=== PATIENT | male | born 1945 | race Caucasian/White ===

== ENCOUNTER 2016-06-18 10:27 | Outpatient (CLI) | payer MEDICARE, MEDICAID | END 2016-06-18 10:28 | disposition home or self-care (01) | DX: E87.1 Hypo-osmolality and hyponatremia (principal); E78.5 Hyperlipidemia, unspecified; Z79.899 Other long term (current) drug therapy; Z12.5 Encounter for screening for malignant neoplasm of prostate; D64.9 Anemia, unspecified | CPT/HCPCS: 36415; 80053; 80061; 80162; 85025; G0103 ==

== ENCOUNTER 2016-11-30 14:34 | Outpatient (CLI) | payer MEDICARE, OTHER ==
[2016-11-30 19:34] LABS: BASOPHILS # (AUTO) 0.1 10^3/uL (0.0-0.1); BASOPHILS % (AUTO) 1.3 %; EOSINOPHILS % (AUTO) 0.7 %; HCT - HEMATOCRIT 42.4 % (42.0-52.0); HGB - HEMOGLOBIN 14.4 g/dL (14.0-18.0); LYMPHOCYTES # (AUTO) 2.1 10^3/uL (1.5-3.5); LYMPHOCYTES % (AUTO) 32.2 %; MEAN CORPUSCULAR HEMOGLOBIN 32.3 pg (27.0-31.0); MEAN CORPUSCULAR HGB CONC 33.9 g/dL (32.0-36.0); MEAN CORPUSCULAR VOLUME 95.1 fL (80.0-94.0); MONOCYTES # (AUTO) 0.8 10^3/uL (0.0-1.0); MONOCYTES % (AUTO) 11.8 %; NEUTROPHILS # (AUTO) 3.5 10^3/uL (1.5-6.6); NUCLEATED RED BLOOD CELLS AUTO 0.1 /100WBC; RED BLOOD COUNT 4.46 10^6/uL (4.70-6.10); RED CELL DISTRIBUTION WIDTH 13.8 % (12.0-15.0); UNCORRECTED WHITE BLOOD COUNT 6.5 x10^3/uL; WHITE BLOOD COUNT 6.5 x10^3/uL (4.8-10.8)
[2016-11-30 20:54] LABS: BILIRUBIN,TOTAL 0.9 mg/dL (0.2-1.0); BUN - BLOOD UREA NITROGEN 11 mg/dL (6-20); CALCIUM 9.1 mg/dL (8.5-10.3); CARBON DIOXIDE - CO2 23 mmol/L (21-32); CHLORIDE 100 mmol/L (101-111); CHOL/HDL RATIO 3.1 (<5.0); CHOLESTEROL 205 mg/dL; CREATININE 0.8 mg/dL (0.6-1.2); GFR - MDRD 96 (>89); GLUCOSE 99 mg/dL (70-100); HDL CHOLESTEROL 67 mg/dL; LDL/HDL RATIO 1.8 (<3.6); POTASSIUM 4.2 mmol/L (3.5-5.0); SODIUM 133 mmol/L (135-145); TOTAL PROTEIN 6.6 g/dL (6.7-8.2); TRIGLYCERIDES 87 mg/dL; VLDL CHOLESTEROL 17 mg/dL
== END 2016-11-30 14:35 | disposition home or self-care (01) ==
LOC: LAB.WCP 14:34
PROVIDERS: ATTEND Family Medicine
DX: E78.5 Hyperlipidemia, unspecified (principal)
CPT/HCPCS: 36415; 80053; 80061; 85025

== ENCOUNTER 2016-12-21 13:22 | Outpatient (CLI) | payer MEDICARE, OTHER ==
--- NOTE | 2016-12-21 18:18 | Ultrasound Report ---
LIMITED PELVIC ULTRASOUND: 12/21/2016 CLINICAL HISTORY: Left groin mass. TECHNIQUE: Real-time scanning was performed with players club representative static images obtained. FINDINGS: The patient has a small inguinal hernia. Defect in the anterior aspect of the left abdomi nal/pelvic wall in the area of the inguinal hernia measures 1.0 x 2.2 cm. The mesenteric fat extendi ng through the defect in the abdominal/pelvic wall measures 1.4 x 2.0 cm. The mesenteric fat extendi ng through the gap in the abdominal/pelvic wall measures 1.0 x 1.4 x 2.0 cm. Occasionally, bowel is seen extending through the defect in the anterior abdominal and pelvic wall but it is not incarcerate d. It is easily reducible. IMPRESSION: LEFT INGUINAL HERNIA IS NOTED. DEFECT IN THE ABDOMINAL/PELVIC WALL AT THE SITE OF THE H ERNIA MEASURES 2.0 X 1.4 CM. MESENTERIC FAT IS NOTED EXTENDING THROUGH THE DEFECT. OCCASIONALLY, NO N-INCARCERATED BOWEL IS NOTED EXTENDING THROUGH THE DEFECT. JOB #: [id number] EXT JOB #:
== END 2016-12-21 13:23 | disposition home or self-care (01) ==
LOC: DI 13:22
PROVIDERS: ATTEND Family Medicine
DX: K40.90 Unilateral inguinal hernia, without obstruction or gangrene, not specified as recurrent (principal)
CPT/HCPCS: 76857

== ENCOUNTER 2017-01-26 09:17 | Outpatient (CLI) | payer MEDICARE, OTHER ==
[2017-01-26 10:05] LABS: CALCIUM 9.3 mg/dL (8.5-10.3); CREATININE 1.2 mg/dL (0.6-1.2); POTASSIUM 4.4 mmol/L (3.5-5.0)
== END 2017-01-26 09:18 | disposition home or self-care (01) ==
LOC: LAB 09:17
PROVIDERS: ATTEND Registered Nurse
DX: Z79.899 Other long term (current) drug therapy (principal)
CPT/HCPCS: 36415; 80048; 93005

== ENCOUNTER 2017-02-01 07:35 | Day surgery (SDC) | payer MEDICARE, OTHER ==
[~2017-02-01 07:35] MED LIST: ceFAZolin 2 GM/50 ML 50 ML IV ONE
[2017-02-01] MEDS ORDERED: LACTATED RINGERS 1,000 ML IV ONE ×3 (07:55→09:32)
[2017-02-01] MEDS ORDERED: BUPIVACAINE 0.5% PF 30 ML VIAL INFIL ONE (09:13)
[2017-02-01] MEDS ORDERED: DEXAMETHASONE 4 MG/ML VIAL IVP ONE (10:10)
[2017-02-01] MEDS ORDERED: PROPOFOL 200 MG/20 ML VIAL IVP ONE (10:10)
[2017-02-01] MEDS ORDERED: ONDANSETRON 4 MG/2 ML VIAL IVP ONE (10:10)
[2017-02-01] MEDS ORDERED: MIDAZOLAM 2 MG/2 ML VIAL IVP ONE (10:10)
[2017-02-01] MEDS ORDERED: SUCCINYLCHOLINE 200 MG/10 ML VIAL IVP ONE (10:10)
[2017-02-01] MEDS ORDERED: NEOSTIGMINE 1 MG/1 ML 10 ML MDV IVP ONE (10:10)
[2017-02-01] MEDS ORDERED: ACETAMINOPHEN 1,000 MG/100 ML VIAL IV ONE (10:10)
[2017-02-01] MEDS ORDERED: ROCURONIUM 50 MG/5 ML VIAL IVP ONE (10:10)
[2017-02-01] MEDS ORDERED: GLYCOPYRROLATE 1 MG/5 ML VIAL IVP ONE (10:10)
[2017-02-01] MEDS ORDERED: LIDOCAINE-MPF 2% 5 ML VIAL IM ONE (10:10)
--- NOTE | 2017-02-01 11:02 | OPERATIVE REPORT ---
DATE OF SURGERY: 02/01/2017 00:00:00 SURGEON: Veena Chen MD. PROCEDURE: Laparoscopic left inguinal hernia repair. PREOPERATIVE DIAGNOSIS: Left inguinal hernia. POSTOPERATIVE DIAGNOSIS: Left inguinal hernia. INDICATION FOR PROCEDURE: This is a 71-year-old male who presents with a symptomatic left inguinal hernia, which is reducible. FINDINGS: After obtaining informed consent from the patient, he was brought into the operating room and positioned on the operating table in the supine position, taking note of pressure points. He was intubated by Anesthesia. He was administered 2 grams of Ancef. He was prepped and draped in the usual sterile fashion and a time-out was taken according to protocol. An infraumbilical 1 cm incision was created and deepened down to the anterior rectus sheath. This was fully exposed and divided using a #15 blade and extended laterally using Metzenbaum, approximately 1 cm. The underlying rectus muscle was exposed. This was swept laterally with the tonsil clamp and the surgeon's finger was inserted into the retrorectus space. Blunt dissection was performed. The dissection balloon was then inserted into the retrorectal space and the balloon inflated under direct visualization. This was then withdrawn and exchanged for the operative port. Camera was inserted and the space insufflated. Two 5 mm ports were inserted in the midline. Filmy adhesions overlying the pubic bone were swept free. I then worked my way medially to laterally, sweeping down the peritoneum from the lateral abdominal wall, working my way towards the cord structures. The epigastric vessels were identified, an indirect hernia was identified, which was partially reduced from the previous balloon dissection. Using blunt dissection, this was then fully reduced completely the sac from the cord structures. The direct space was inspected for any hernia formation in this location and none was noted. I then turned my attention to the patient's right groin. I began sweeping the peritoneum down from the right lateral abdominal wall and inspected the cord structures at this location. No hernia defect was identified on the right. A large Bard mesh was then selected and was inserted through the umbilical port. This was positioned into place in the patient's left groin, ensuring that it was overlapping the midline medially and covering the direct, indirect and femoral spaces. It was tacked into place medially above the pubic bone and to the lateral abdominal wall, ensuring it was palpable with the contralateral surgeon's hand. The mesh was then held into place while the air was evacuated, ensuring that it did not fold upon itself upon evacuation of the insufflation. All ports were removed. The anterior rectus sheath was closed with a running 0 Vicryl suture and 30 mL of local anesthetic was utilized. The skin incisions were closed with 4-0 Monocryl. Dermabond was applied. The patient was extubated and taken to the recovery room in stable condition. ESTIMATED BLOOD LOSS: Less than 5 mL. COMPLICATIONS: None. SPECIMENS: None. JOB #: [id number] EXT JOB #:[id number] [email or web address]
[2017-02-01 11:40] VITALS: BP 141/68
== END 2017-02-01 07:36 | disposition home or self-care (01) ==
LOC: SDS 07:35
PROVIDERS: ATTEND Surgery
PROC: 0YQ64ZZ Repair Left Inguinal Region, Percutaneous Endoscopic Approach (ICD-10-PCS; principal; 2017-02-01 08:45)
DX: K40.90 Unilateral inguinal hernia, without obstruction or gangrene, not specified as recurrent (principal); I10 Essential (primary) hypertension; Z79.82 Long term (current) use of aspirin
CPT/HCPCS: 49650; C1781; J0131; J0690; J7120

== ENCOUNTER 2017-08-04 08:00 | Outpatient (CLI) | payer MEDICARE, OTHER ==
[2017-08-04 18:55] LABS: BASOPHILS # (AUTO) 0.1 10^3/uL (0.0-0.1); BASOPHILS % (AUTO) 1.1 %; EOSINOPHILS # (AUTO) 0.1 10^3/uL (0.0-0.7); EOSINOPHILS % (AUTO) 0.9 %; HGB - HEMOGLOBIN 15.4 g/dL (14.0-18.0); LYMPHOCYTES # (AUTO) 1.6 10^3/uL (1.5-3.5); MEAN CORPUSCULAR HEMOGLOBIN 31.2 pg (27.0-31.0); MEAN CORPUSCULAR HGB CONC 33.1 g/dL (32.0-36.0); MEAN CORPUSCULAR VOLUME 94.2 fL (80.0-94.0); MEAN PLATELET VOLUME 9.7 fL (7.4-11.4); MONOCYTES # (AUTO) 0.9 10^3/uL (0.0-1.0); MONOCYTES % (AUTO) 10.7 %; NEUTROPHILS # (AUTO) 5.4 10^3/uL (1.5-6.6); NEUTROPHILS % (AUTO) 67.3 %; PLT - PLATELET COUNT 228 10^3/uL (130-450); RED BLOOD COUNT 4.92 10^6/uL (4.70-6.10); RED CELL DISTRIBUTION WIDTH 14.5 % (12.0-15.0); WHITE BLOOD COUNT 8.1 x10^3/uL (4.8-10.8)
[2017-08-04 19:12] LABS: PSA SCREEN (Z12.5) 1.17 ng/mL (0.000-2.000)
[2017-08-04 19:13] LABS: ALBUMIN 4.6 g/dL (3.2-5.5); ALBUMIN/GLOBULIN RATIO 1.7 (1.0-2.2); ALKALINE PHOSPHATASE 46 IU/L (42-121); ALT ALANINE AMINOTRANSFERASE 20 IU/L (10-60); AST ASPARTATE AMINOTRANSFERASE 28 IU/L (10-42); BILIRUBIN,TOTAL 0.9 mg/dL (0.2-1.0); BUN - BLOOD UREA NITROGEN 16 mg/dL (6-20); CALCIUM 9.4 mg/dL (8.5-10.3); CARBON DIOXIDE - CO2 25 mmol/L (21-32); CHLORIDE 103 mmol/L (101-111); CHOL/HDL RATIO 2.5 (<5.0); CHOLESTEROL 191 mg/dL; GFR - MDRD 74 (>89); GLUCOSE 94 mg/dL (70-100); HDL CHOLESTEROL 76 mg/dL; LDL CHOLESTEROL,CALCULATED 101 mg/dL; LDL/HDL RATIO 1.3 (<3.6); SODIUM 137 mmol/L (135-145); TOTAL PROTEIN 7.3 g/dL (6.7-8.2); VLDL CHOLESTEROL 14 mg/dL
== END 2017-08-04 08:01 ==
LOC: LAB.WCP 08:00
PROVIDERS: ATTEND Family Medicine
DX: E78.5 Hyperlipidemia, unspecified (principal); Z12.5 Encounter for screening for malignant neoplasm of prostate; E29.1 Testicular hypofunction; D64.9 Anemia, unspecified; Z79.899 Other long term (current) drug therapy; R53.83 Other fatigue
CPT/HCPCS: 36415; 80053; 80061; 80162; 84403; 84443; 85025; G0103; 83721; 84153

== ENCOUNTER 2017-08-17 10:59 | Outpatient (CLI) | payer MEDICARE, OTHER ==
--- NOTE | 2017-08-17 13:08 | CT Report ---
NONCONTRAST CHEST CT: 08/17/2017. COMPARISON: Chest CT 01/14/2014. INDICATION: Screening. TECHNIQUE: Noncontrast axial imaging of the chest with coronal and sagittal reformats. FINDINGS: The lungs appear clear without pneumothorax or pleural effusion. There are atherosclerotic calcifications of the coronary arteries. No mediastinal or hilar adenopathy is seen. No pericardial effusion. There is a calcified granuloma of the liver. The limited upper abdomen appears otherwise unremarkable. No bone lesions. IMPRESSION: NO PULMONARY NODULES OR MASSES. CT DOSE REDUCTION STATEMENT In accordance with CT protocol optimization, one or more of the following dose reduction techniques were utilized for this exam: automated exposure control, adjustment of mA and/or KV based on patient size, or use of iterative reconstructive technique. TD: 08/17/2017 13:07 MTDD
== END 2017-08-17 11:00 | disposition home or self-care (01) ==
LOC: DI 10:59
PROVIDERS: ATTEND Family Medicine
DX: Z12.2 Encounter for screening for malignant neoplasm of respiratory organs (principal); Z87.891 Personal history of nicotine dependence

== ENCOUNTER 2018-01-12 18:53 | Outpatient (CLI) | payer MEDICARE, OTHER ==
--- NOTE | 2018-01-13 08:28 | Ultrasound Report ---
Procedure Date: 01/12/2018 Accession Number: [id number] / [id number] Procedure: US - Ext Limited Non Vascular CPT Code: FULL RESULT: EXAM: Ext Limited Non Vascular DATE: 01/12/2018 7:12 PM CLINICAL HISTORY: NEOPLASM OF LEG COMPARISON: None. TECHNIQUE: Grayscale and limited color Doppler ultrasound images of the left lateral calf focus in the area of interest were obtained. FINDINGS: Less than 1 cm deep to the skin is a 2.7 cm long and 0.5 cm tall anechoic fluid collection with increased through transmission no solid component and no blood flow on color Doppler. In the same subcutaneous tissues there is edema tracking above and below this collection which resides above the muscular fascial compartment. IMPRESSION: Cyst or ruptured cyst without evidence of solid mass/invasion or suggestion of abscess formation. A resolving hematoma in its late stages can also have this appearance. Superinfection is not entirely excluded. RADIA
== END 2018-01-12 18:54 | disposition home or self-care (01) ==
LOC: DI 18:53
PROVIDERS: ATTEND Internal Medicine
DX: D49.89 Neoplasm of unspecified behavior of other specified sites (principal)
CPT/HCPCS: 76882

== ENCOUNTER 2018-05-13 11:13 | Outpatient (CLI) | payer MEDICARE, OTHER ==
[2018-05-13 19:00] LABS: BASOPHILS # (AUTO) 0.1 10^3/uL (0.0-0.1); BASOPHILS % (AUTO) 1.7 %; EOSINOPHILS # (AUTO) 0.1 10^3/uL (0.0-0.7); EOSINOPHILS % (AUTO) 1.7 %; HGB - HEMOGLOBIN 14.4 g/dL (14.0-18.0); LYMPHOCYTES # (AUTO) 1.6 10^3/uL (1.5-3.5); LYMPHOCYTES % (AUTO) 23.2 %; MEAN CORPUSCULAR HEMOGLOBIN 32.1 pg (27.0-31.0); MEAN CORPUSCULAR HGB CONC 32.7 g/dL (32.0-36.0); MEAN CORPUSCULAR VOLUME 98.2 fL (80.0-94.0); MEAN PLATELET VOLUME 9.8 fL (7.4-11.4); MONOCYTES % (AUTO) 14.9 %; NEUTROPHILS # (AUTO) 4.1 10^3/uL (1.5-6.6); NEUTROPHILS % (AUTO) 58.5 %; PLT - PLATELET COUNT 206 10^3/uL (130-450); RED BLOOD COUNT 4.48 10^6/uL (4.70-6.10); RED CELL DISTRIBUTION WIDTH 14.1 % (12.0-15.0); WHITE BLOOD COUNT 6.9 x10^3/uL (4.8-10.8)
[2018-05-13 19:15] LABS: ALBUMIN 3.9 g/dL (3.2-5.5); ALBUMIN/GLOBULIN RATIO 1.6 (1.0-2.2); ALKALINE PHOSPHATASE 51 IU/L (42-121); ALT ALANINE AMINOTRANSFERASE 15 IU/L (10-60); AST ASPARTATE AMINOTRANSFERASE 25 IU/L (10-42); BILIRUBIN,TOTAL 0.8 mg/dL (0.2-1.0); BUN - BLOOD UREA NITROGEN 20 mg/dL (6-20); CALCIUM 8.9 mg/dL (8.5-10.3); CARBON DIOXIDE - CO2 24 mmol/L (21-32); CHLORIDE 105 mmol/L (101-111); CHOL/HDL RATIO 2.4 (<5.0); CHOLESTEROL 174 mg/dL; DIGOXIN 0.8 ng/mL; GFR - MDRD 74 (>89); GLUCOSE 93 mg/dL (70-100); HDL CHOLESTEROL 74 mg/dL; LDL CHOLESTEROL,CALCULATED 89 mg/dL; LDL/HDL RATIO 1.2 (<3.6); SODIUM 139 mmol/L (135-145); TOTAL PROTEIN 6.4 g/dL (6.7-8.2); VLDL CHOLESTEROL 11 mg/dL
== END 2018-05-13 23:59 | disposition home or self-care (01) ==
LOC: LAB.WCP 11:13
PROVIDERS: ATTEND Family Medicine
DX: I10 Essential (primary) hypertension (principal); Z79.899 Other long term (current) drug therapy; E78.5 Hyperlipidemia, unspecified
CPT/HCPCS: 36415; 80053; 80061; 80162; 83721; 85025

== ENCOUNTER 2018-06-06 08:00 | Outpatient (CLI) | payer MEDICARE, OTHER ==
[2018-06-06 19:14] LABS: DIGOXIN 0.7 ng/mL
== END 2018-06-06 23:59 | disposition home or self-care (01) ==
LOC: LAB.WCP 08:00
PROVIDERS: ATTEND Family Medicine
DX: Z79.899 Other long term (current) drug therapy (principal)
CPT/HCPCS: 36415; 80162

== ENCOUNTER 2018-07-26 08:00 | Outpatient (CLI) | payer MEDICARE, OTHER | END 2018-07-26 23:59 | LOC: LAB.WCP 08:00 | PROVIDERS: ATTEND Family Medicine | DX: R39.11 Hesitancy of micturition (principal) | CPT/HCPCS: 36415; 84153 ==

== ENCOUNTER 2018-07-30 14:19 | Observation (INO) | payer MEDICARE, OTHER ==
[2018-07-30] MEDS ORDERED: SODIUM CHLORIDE 0.9% 1,000 ML IV ONE ×2 (14:45)
[2018-07-30] MEDS ORDERED: PANTOPRAZOLE 40 MG VIAL IVP STA (15:13)
[2018-07-30 15:14] LABS: BASOPHILS # (AUTO) 0.1 10^3/uL (0.0-0.1); BASOPHILS % (AUTO) 0.9 %; EOSINOPHILS % (AUTO) 0.3 %; HGB - HEMOGLOBIN 10.8 g/dL (14.0-18.0); LYMPHOCYTES # (AUTO) 1.2 10^3/uL (1.5-3.5); LYMPHOCYTES % (AUTO) 10.8 %; MEAN CORPUSCULAR HEMOGLOBIN 33.6 pg (27.0-31.0); MEAN CORPUSCULAR HGB CONC 34.8 g/dL (32.0-36.0); MEAN CORPUSCULAR VOLUME 96.5 fL (80.0-94.0); MEAN PLATELET VOLUME 8.7 fL (7.4-11.4); MONOCYTES # (AUTO) 0.6 10^3/uL (0.0-1.0); MONOCYTES % (AUTO) 5.8 %; NEUTROPHILS # (AUTO) 9.2 10^3/uL (1.5-6.6); NEUTROPHILS % (AUTO) 82.2 %; PLT - PLATELET COUNT 165 10^3/uL (130-450); RED BLOOD COUNT 3.21 10^6/uL (4.70-6.10); RED CELL DISTRIBUTION WIDTH 13.5 % (12.0-15.0); WHITE BLOOD COUNT 11.2 x10^3/uL (4.8-10.8)
--- NOTE | 2018-07-30 15:15 | ED Physician Documentation ---
PD HPI GI BLEED - Stated complaint Stated Complaint: N/D DIZZY/WEAKNESS - Chief complaint Chief Complaint: General - History obtained from History obtained from: Patient, Family - History of Present Illness Timing - onset: Today Timing - duration: Days (1) Timing - details: Abrupt onset Pain level max: 2 Pain level now: 2 Associated symptoms: Black/tarry stool (x3 today). No: Vomiting, Coffee ground emesis, Hematemesis, BRBPR Contributing factors: Alcohol use (1 750ml bottle of wine per day), Aspirin use (325mg PO daily). No: Sick contact, Bad food, Recent antibiotics, NSAID use, Stress, Anticoagulated Improved by: Other (nothing) Worsened by: Other (nothing) Similar symptoms before: Diagnosis (bleeding duodenal ulcer in 2008 or 2010, admitted here for same.) Recently seen: Not recently seen Review of Systems Ten Systems: 10 systems reviewed and negative Constitutional: denies: Fever, Chills Respiratory: denies: Cough GI: denies: Nausea, Vomiting, Hematemesis : denies: Dysuria Skin: denies: Rash, Lesions Musculoskeletal: denies: Neck pain, Back pain Neurologic: denies: Headache PD PAST MEDICAL HISTORY - Past Medical History Past Medical History: Yes Cardiovascular: Atrial fibrillation Respiratory: COPD Neuro: None Endocrine/Autoimmune: None GI: GERD, GI bleed, Ulcers : None HEENT: None Psych: None Musculoskeletal: Osteoporosis Derm: None - Past Surgical History Past Surgical History: Yes General: Colonoscopy Ortho: Knee replacement - Present Medications Home Medications: Ambulatory Orders Medication Instructions Recorded Confirmed Aliskiren Hemifumarate [Tekturna] 300 mg PO DAILY 02/05/13 07/30/18 Carvedilol [Coreg] 25 mg PO BID 02/05/13 07/30/18 Trazodone HCl 50 mg PO DAILY PM 02/05/13 07/30/18 Albuterol Sulfate [Ventolin Hfa] 2 puffs IH Q4HR PRN 06/18/13 07/30/18 Budesonide/Formoterol Fumarate 2 puffs IH BID 06/18/13 07/30/18 [Symbicort 80-4.5 Mcg Inhaler] Digoxin 250 mcg PO DAILY 01/27/14 07/30/18 Amlodipine Besylate 10 mg PO DAILY 01/26/17 07/30/18 Aspirin 325 mg PO DAILY 01/26/17 07/30/18 Cholecalciferol (Vitamin D3) 1,000 unit PO DAILY 01/26/17 07/30/18 [Vitamin D3] Ipratropium/Albuterol [Combivent 1 puffs IH TID 01/26/17 07/30/18 Respimat] Melatonin 10 mg PO QPM PRN 01/26/17 07/30/18 Valerian Root Extract [Valerian] 450 mg PO DAILY 01/26/17 07/30/18 - Allergies Allergies/Adverse Reactions: Allergies Allergy/AdvReac Type Severity Reaction Status Date / Time hydromorphone HCl * Allergy Intermediate itch Verified 07/30/18 14:57 [From Dilaudid] lisinopril AdvReac Unknown Verified 07/30/18 14:57 - Social History Does the pt smoke?: No Smoking Status: Never smoker Does the pt drink ETOH?: Yes Does the pt have substance abuse?: No - Immunizations Immunizations are current?: Yes Immunizations: TDAP current <10years - POLST Patient has POLST: No PD ED PE NORMAL - Vitals Vital signs reviewed: Yes - General General: Alert and oriented X 3, No acute distress, Well developed/nourished - HEENT HEENT: PERRL, Moist mucous membranes - Neck Neck: Supple, no meningeal sign - Cardiac Cardiac: RRR, Strong equal pulses - Respiratory Respiratory: No respiratory distress, Clear bilaterally - Abdomen Abdomen: Soft, Non tender, Non distended - Rectal Rectal: Other (dark tarry stool, hemoccult +) - Back Back: No spinal TTP - Derm Derm: Warm and dry - Extremities Extremities: No edema - Neuro Neuro: Alert and oriented X 3 - Psych Psych: Normal mood, Normal affect Results - Vitals Vitals: Vital Signs - 24 hr 07/30/18 07/30/18 14:41 15:38 Temperature 36.4 C L Heart Rate 62 71 Respiratory 14 16 Rate Blood Pressure 105/61 118/67 O2 Saturation 100 100 Oxygen O2 Source [Without Activity] Room air O2 Source Room air - Labs Labs: Laboratory Tests 07/30/18 07/30/18 07/30/18 14:38 15:05 15:05 WBC 11.2 H RBC 3.21 L Hgb 10.8 L Hct 31.0 L MCV 96.5 H MCH 33.6 H MCHC 34.8 RDW 13.5 Plt Count 165 MPV 8.7 Neut # (Auto) 9.2 H Lymph # (Auto) 1.2 L Steele # (Auto) 0.6 Eos # (Auto) 0.0 Baso # (Auto) 0.1 Absolute Nucleated RBC 0.01 Nucleated RBC % 0.1 PT INR APTT Sodium 136 Potassium 4.8 Chloride 104 Carbon Dioxide 23 Anion Gap 9.0 BUN 57 H Creatinine 0.9 Estimated GFR (MDRD) 83 L Glucose 113 H POC Whole Bld Glucose 106 H Calcium 8.5 Total Bilirubin 0.7 AST 18 ALT 14 Alkaline Phosphatase 38 L Total Protein 5.5 L Albumin 3.2 Globulin 2.3 Albumin/Globulin Ratio 1.4 Lipase 27 Last Dose Date Last Dose Time Digoxin Ethyl Alcohol Blood Type Antibody Screen 07/30/18 07/30/18 07/30/18 15:05 15:05 15:05 WBC RBC Hgb Hct MCV MCH MCHC RDW Plt Count MPV Neut # (Auto) Lymph # (Auto) Steele # (Auto) Eos # (Auto) Baso # (Auto) Absolute Nucleated RBC Nucleated RBC % PT 13.5 H INR 1.2 APTT 18.8 L Sodium Potassium Chloride Carbon Dioxide Anion Gap BUN Creatinine Estimated GFR (MDRD) Glucose POC Whole Bld Glucose Calcium Total Bilirubin AST ALT Alkaline Phosphatase Total Protein Albumin Globulin Albumin/Globulin Ratio Lipase Last Dose Date UNKNOWN Last Dose Time UNKNOWN Digoxin 0.7 Ethyl Alcohol Blood Type O POSITIVE Antibody Screen NEGATIVE 07/30/18 15:05 WBC RBC Hgb Hct MCV MCH MCHC RDW Plt Count MPV Neut # (Auto) Lymph # (Auto) Steele # (Auto) Eos # (Auto) Baso # (Auto) Absolute Nucleated RBC Nucleated RBC % PT INR APTT Sodium Potassium Chloride Carbon Dioxide Anion Gap BUN Creatinine Estimated GFR (MDRD) Glucose POC Whole Bld Glucose Calcium Total Bilirubin AST ALT Alkaline Phosphatase Total Protein Albumin Globulin Albumin/Globulin Ratio Lipase Last Dose Date Last Dose Time Digoxin Ethyl Alcohol < 5.0 Blood Type Antibody Screen PD MEDICAL DECISION MAKING - ED course Complexity details: reviewed results, re-evaluated patient, considered differential, d/w patient, d/w family, d/w technical marketing consultant ED course: 72-year-old male with what appears to be a recurrent bleeding gastric versus duodenal ulcer. He is not on any PPI. He does drink at least a bottle of wine a day. Also takes a full dose aspirin daily. He required 8 units of blood last time this occurred. Given Protonix here. Discussed case with Dr. Saldana who will consult from surgery. Also discussed the case with Dr. Martino, hospitalist who accepts for observation. This document was made in part using voice recognition software. While efforts are made to proofread this document, sound alike and grammatical errors may occur. Departure - Departure Disposition: ED Place in Observation Clinical Impression: Upper GI bleed Condition: Stable Discharge Date/Time: 07/30/18 17:16
[2018-07-30 15:24] LABS: INR 1.2 (0.8-1.2); PT - PROTHROMBIN TIME 13.5 secs (9.9-12.6)
[2018-07-30 15:29] LABS: ALBUMIN 3.2 g/dL (3.2-5.5); ALBUMIN/GLOBULIN RATIO 1.4 (1.0-2.2); BILIRUBIN,TOTAL 0.7 mg/dL (0.2-1.0); CALCIUM 8.5 mg/dL (8.5-10.3); CREATININE 0.9 mg/dL (0.6-1.2); TOTAL PROTEIN 5.5 g/dL (6.7-8.2)
[2018-07-30 15:30] LABS: DIGOXIN 0.7 ng/mL
[2018-07-30 15:31] LABS: PARTIAL THROMBOPLASTIN TIME 18.8 secs (24.9-33.3)
[2018-07-30] MEDS ORDERED: ACETAMINOPHEN 325 MG TABLET PO PRN (16:19)
[2018-07-30] MEDS ORDERED: ONDANSETRON 4 MG/2 ML VIAL IVP PRN (16:19)
[2018-07-30] MEDS ORDERED: MORPHINE 2 MG/ML CARPUJECT IVP PRN (16:19)
[2018-07-30] MEDS ORDERED: ZOLPIDEM 5 MG TABLET PO PRN (16:19)
[2018-07-30] MEDS ORDERED: LORazepam 2 MG/ML VIAL IVP PRN (16:33)
[2018-07-30] MEDS ORDERED: ALBUTEROL NEB 2.5 MG/3 ML INH PRN (16:39)
--- NOTE | 2018-07-30 16:51 | HISTORY & PHYSICAL EXAMINATION ---
Chief Complaint - Chief Complaint Chief Complaint: black tarry stools History of Present Illness - History of Present Illness HPI Comment/Other: Mr. Duenas is 72-yrs-old male with a PMH significant for alcoholism with alcohol withdrawal syndrom and delirium tremens, hx of gastric ulcer, HTN, chronic Afib, Depression, COPD, who present ER for complain of feeling of fatigue and dizziness, and having an episode of black tarry stools today. Pt also reports nausea and vomiting. Pt report he has mild cramp pain at upper left quadrant at stomach area. Pt state he drink alcohol wine 750 cc every day. Pt report he take ASA 325 mg daily for his afib " my doctor let me take it for my Afib." pt denies hematemesis, chest pain, palpitation, fever, chill, shortness of break. Pt's HGB was 14.4 on 2017. Today pt's HGB is 10.8. pt also had significant elevated BUN at 58, normally pt has 20. Otherwise pt is hemodynamically stable. Surgeon was called at ER. Pt was on NPO either today or tomorrow for Endoscopy. History - Past Medical History Cardiovascular: reports: Atrial fibrillation Respiratory: reports: COPD Neuro: reports: None Endocrine/Autoimmune: reports: None GI: reports: GERD, GI bleed, Ulcers : reports: None HEENT: reports: None Psych: reports: None Musculoskeletal: reports: Osteoporosis Derm: reports: None MRSA Hx?: No - Past Surgical History General: reports: Colonoscopy Ortho: reports: Knee replacement - Family & Social History Social History Notes: pt has long history for alcoholic abuse, pt denies cigaret t smoking or drug problem. - Substance History Use Issues: Delirium Abuse: Recurrent use of substance despite neg consequences: Alcohol - POLST Patient has POLST: No Meds/Allgy - Home Medications Home Medications: Ambulatory Orders Medication Instructions Recorded Confirmed Aliskiren Hemifumarate [Tekturna] 300 mg PO DAILY 02/05/13 07/30/18 Carvedilol [Coreg] 25 mg PO BID 02/05/13 07/30/18 Trazodone HCl 50 mg PO DAILY PM 02/05/13 07/30/18 Albuterol Sulfate [Ventolin Hfa] 2 puffs IH Q4HR PRN 06/18/13 07/30/18 Budesonide/Formoterol Fumarate 2 puffs IH BID 06/18/13 07/30/18 [Symbicort 80-4.5 Mcg Inhaler] Digoxin 250 mcg PO DAILY 01/27/14 07/30/18 Amlodipine Besylate 10 mg PO DAILY 01/26/17 07/30/18 Aspirin 325 mg PO DAILY 01/26/17 07/30/18 Cholecalciferol (Vitamin D3) 1,000 unit PO DAILY 01/26/17 07/30/18 [Vitamin D3] Ipratropium/Albuterol [Combivent 1 puffs IH TID 01/26/17 07/30/18 Respimat] Melatonin 10 mg PO QPM PRN 01/26/17 07/30/18 Valerian Root Extract [Valerian] 450 mg PO DAILY 01/26/17 07/30/18 - Allergies Allergies/Adverse Reactions: Allergies Allergy/AdvReac Type Severity Reaction Status Date / Time hydromorphone HCl * Allergy Intermediate itch Verified 07/30/18 14:57 [From Dilaudid] lisinopril AdvReac Unknown Verified 07/30/18 14:57 Review of Systems - Constitutional Constitutional: reports: Fatigue. denies: Fever, Chills, Malaise, Weakness, Poor appetite, Diaphoresis, Night sweats, Weight gain, Weight loss - Eyes Eyes: denies: Pain, Irritation, Amaurosis, Blurred vision, Spots in vision, Field loss, Vision loss, Dipolpia - Ears, Nose & Throat Ears, Nose & Throat: denies: Ear pain, Hearing loss, Hearing aids, Tinnitus, Vertigo, Nasal pain, Nasal discharge, Nosebleeds, Nasal obstruction, Nasal congestion, Postnasal drainage, Dentures, Sore throat, Hoarseness, Mouth lesions, Bleeding gums, Dental decay - Cardiovascular Cariovascular: denies: Irregular heart rate, Palpitations, Chest pain, Edema, Lightheadedness, Syncope, Exertional dyspnea, Decr. exercise tolerance - Respiratory Respiratory: denies: Cough, Sputum production, Wheezing, Snoring, Hemoptysis, Orthopnea, SOB at rest, SOB with exertion - Gastrointestinal Gastrointestinal: reports: Abdominal pain, Black stools, Nausea, Vomiting. denies: Abdominal distention, Constipation, Diarrhea, Change in bowel habits, Rectal bleeding, Bloody stools, Bile emesis, Keenan blood emesis, Coffee grounds emesis, Reflux/heartburn - Genitourinary Genitourinary: denies: Dysuria, Frequency, Urgency, Hematuria, Incontinence, Flank pain, Nocturia, Urethral discharge - Musculoskeletal Musculoskeletal: denies: Muscle pain, Back pain, Muscle aches, Stiffness, Limited range of motion, Muscle weakness, Gout, Joint pain - Integumentary Integumentary: denies: Rash, Pruritis, Lesions, Dryness, Lumps, Acne, Pigment changes, Nail changes - Neurological Neurological: denies: General weakness, Focal weakness, Headache, Dizziness, Numbness, Memory problems, Pre-existing deficit, Abnormal gait, Seizures, Incoordination, Slurred speech - Psychiatric Psychiatric: denies: Depression, Anxiety, Suicidal, Delusions, Hallucinations, Homicidal - Endocrine Endocrine: denies: Polyuria, Polydypsia, Polyphagia, Intolerance to cold - Hematologic/Lymphatic Hematologic/Lymphatic: reports: Anemia. denies: Bruising, Petechiae, Blood clots, Lymphadenopathy, Recurrent infections Prior Level of Functionality: pt is living at home with his Exam - Vital Signs Reviewed Vital Signs: Yes Vital Signs: Vital Signs x48h Temp Pulse Resp BP Pulse Ox 07/30/18 15:38 71 16 118/67 100 07/30/18 14:41 36.4 C L 62 14 105/61 100 - Physical Exam General Appearance: positive: No acute distress, Alert. negative: Lethargic Eyes Bilateral: positive: Normal inspection, PERRL, No lid inflammation, Conjunctivae nml ENT: positive: ENT inspection nml, Pharynx nml, No signs of dehydration. negative: Purulent nasal drainage, Pharyngeal erythema, Oral lesions Neck: positive: Nml inspection, Thyroid nml, No JVD, Trachea midline. negative: Thyromegaly, Stiff neck, Carotid bruit, Swelling/bruising, Tracheal deviation Respiratory: positive: Chest non-tender, No respiratory distress, Breath sounds nml. negative: Wheezes, Rales, Rhonchi Cardiovascular: positive: Regular rate & rhythm, No murmur, No gallop. negative: Irregularly irregular, Extrasystoles, Tachycardia, Bradycardia, JVD present, Systolic murmur, Diastolic murmur Peripheral Pulses: positive: 2+ Abdomen: positive: Non-tender, No organomegaly, Nml bowel sounds, No distention. negative: Tenderness, Guarding, Rebound Back: positive: Nml inspection. negative: CVA tenderness (R), CVA tenderness (L) Skin: positive: Color nml, No rash, Warm, Dry. negative: Cyanosis, Diaphoresis, Pallor, Skin rash Extremities: positive: Non-tender, Full ROM, Nml appearance. negative: Calf tenderness, Joint swelling, Rudi's sign/cords Neurologic/Psychiatric: positive: Oriented x3, Motor nml, Sensation nml, Mood/affect nml. negative: Weakness, Sensory loss, Facial droop, Slurred/abnml speech, Depressed mood/affect Sepsis Event Note (H) - Evaluation Current Stage of Sepsis: Ruled out Conclusion/Plan - Problem List (1) Black tarry stools Conclusion/Plan: pt report black stool, with drop of HGB, and increase of BUN, with alcohol abuse and ASA use, hx of gastric ulcer, all indicate pt is going upper GI bleeding. consult with GI surgeon, plan to have EGD H&H to monitor pt Protonic IV bid and IVF hold pt's home meds ASA daily lab and vital monitor (2) Alcohol abuse Conclusion/Plan: long hx of alcohol abuse, and continue to drink 750 wine daily, hx of alcohol withdrawal and delirium CIWA protocol and check glucose level Banna bag Ativan PRN neuro check (3) Chronic a-fib Conclusion/Plan: pt is hemodynamic stable, HR is controlled at around 70. pt denies chest pain, palpitations continue home Digix and check Digix serum concentration continue Coreg tele monitor hold blood thinner for GI bleed, hold ASA. (4) HTN (hypertension) Conclusion/Plan: hemodynamic stable, continue home BP meds, vital monitor (5) History of COPD Conclusion/Plan: stable, 100% Sat on room air now. Albuterol and Duoneb PRN - Lab Results Fish Bones: 07/30/18 15:05 07/30/18 15:05 Core Measures - Anticipated LOS I expect patient to be DC'd or transferred within 96 hours.: Yes - DVT/VTE - Prophylaxis VTE/DVT Device ordered at admit?: Yes VTE/DVT Prophylaxis med ordered at admit?: No Not Ordered - Medical Reason: Contraindicated
[2018-07-30] MEDS ORDERED: PANTOPRAZOLE 40 MG VIAL IVP SCH (17:00)
[2018-07-30 17:04] LABS: BILIRUBIN,URINE NEGATIVE (NEGATIVE); GLUCOSE, URINE (UA) NEGATIVE (NEGATIVE); KETONES,URINE (UA) NEGATIVE (NEGATIVE); LEUKOCYTE ESTERASE, URINE NEGATIVE (NEGATIVE); NITRITE,URINE NEGATIVE (NEGATIVE); OCCULT BLOOD,URINE NEGATIVE (NEGATIVE); PH,URINE 5.5 PH (5.0-7.5); PROTEIN,URINE NEGATIVE (NEGATIVE); UROBILINOGEN,URINE 0.2 (NORMAL) E.U./dL (NORMAL)
[2018-07-30 17:13] LABS: CLARITY,URINE CLEAR (CLEAR)
[2018-07-30] MEDS: SODIUM CHLORIDE 0.9% 1,000 ML IV SCH (17:15)
--- NOTE | 2018-07-30 19:56 | CONSULTATION NOTE ---
Referring Provider Consult Date: 07/30/18 Chief Complaint - Chief Complaint Chief Complaint: black stool History of Present Illness - History of Present Illness HPI Comment/Other: 72 yo man presented to the ER stating he had melena and blood-tinged vomit this morning. He has not had any episodes since noon. He had a similar, more severe episode 8 years ago which required a large volume blood transfusion related to an ulcer. He is an alcoholic and takes a daily aspirin. Also complains of mild epigastric pain. History - Past Medical History Cardiovascular: reports: Hypertension, Atrial fibrillation, Murmur Respiratory: reports: COPD Neuro: reports: None Endocrine/Autoimmune: reports: None GI: reports: GERD, GI bleed, Ulcers : reports: Incontinence, Other HEENT: reports: None Psych: reports: None Musculoskeletal: reports: Osteoarthritis Derm: reports: None MRSA Hx?: No Other Past Medical History: urinary stream problems, urinary incontinence. Left knee arthritis - Past Surgical History General: reports: Colonoscopy Ortho: reports: Knee replacement - Family & Social History Social History Notes: pt has long history for alcoholic abuse, pt denies cigarett smoking or drug problem. - Substance History Use Issues: Delirium Abuse: Recurrent use of substance despite neg consequences: Alcohol - POLST Patient has POLST: No Meds/Allgy - Home Medications Home Medications: Ambulatory Orders Medication Instructions Recorded Confirmed Aliskiren Hemifumarate [Tekturna] 300 mg PO DAILY 02/05/13 07/30/18 Carvedilol [Coreg] 25 mg PO BID 02/05/13 07/30/18 Trazodone HCl 50 mg PO DAILY PM 02/05/13 07/30/18 Albuterol Sulfate [Ventolin Hfa] 2 puffs IH Q4HR PRN 06/18/13 07/30/18 Budesonide/Formoterol Fumarate 2 puffs IH BID 06/18/13 07/30/18 [Symbicort 80-4.5 Mcg Inhaler] Digoxin 250 mcg PO DAILY 01/27/14 07/30/18 Amlodipine Besylate 10 mg PO DAILY 01/26/17 07/30/18 Aspirin 325 mg PO DAILY 01/26/17 07/30/18 Cholecalciferol (Vitamin D3) 1,000 unit PO DAILY 01/26/17 07/30/18 [Vitamin D3] Ipratropium/Albuterol [Combivent 1 puffs IH TID 01/26/17 07/30/18 Respimat] Melatonin 10 mg PO QPM PRN 01/26/17 07/30/18 Valerian Root Extract [Valerian] 450 mg PO DAILY 01/26/17 07/30/18 - Allergies Allergies/Adverse Reactions: Allergies Allergy/AdvReac Type Severity Reaction Status Date / Time hydromorphone HCl * Allergy Intermediate itch Verified 07/30/18 14:57 [From Dilaudid] lisinopril AdvReac Unknown Verified 07/30/18 14:57 Review of Systems - Gastrointestinal Gastrointestinal: reports: Abdominal pain, Change in bowel habits, Black stools, Nausea, Vomiting, Coffee grounds emesis Exam - Vital Signs Vital Signs: Vital Signs x48h Temp Pulse Pulse Resp BP BP Pulse Ox 07/30/18 18:14 70 16 07/30/18 18:05 36.5 C 37 L 16 100 07/30/18 17:12 36.5 C 73 16 135/70 H 100 07/30/18 16:55 36.7 C 76 16 136/67 H 97 07/30/18 15:38 71 16 118/67 100 07/30/18 14:41 36.4 C L 62 14 105/61 100 - Physical Exam General Appearance: positive: No acute distress Eyes Bilateral: positive: Normal inspection ENT: positive: ENT inspection nml Neck: positive: Nml inspection Abdomen: positive: Non-tender Back: positive: Nml inspection Skin: positive: Color nml Extremities: positive: Non-tender Neurologic/Psychiatric: positive: Oriented x3 Conclusion/Plan - Diagnosis Diagnosis: Upper GI bleed - Plan Plan: Pt appears to have had an upper GI bleed, but he is now stable with no sign of further bleeding. Plan is to observe overnight and recheck an H/H in the morning and perform an EGD if there is any sign of further bleeding. - Lab Results Fish Bones: 07/30/18 15:05 07/30/18 15:05
[2018-07-30] MEDS: SODIUM CHLORIDE FLUSH 0.9% 10 ML SYRINGE IVP SCH (20:02)
[2018-07-30] MEDS: CARVEDILOL 12.5 MG TABLET PO SCH (20:40)
[2018-07-30] MEDS: traZODone 50 MG TABLET PO SCH (20:40)
[2018-07-30] MEDS ORDERED: BUDESONIDE IH SCH (21:00)
[2018-07-30] MEDS ORDERED: FORMOTEROL FUMARATE IH SCH (21:00)
[2018-07-30] MEDS ORDERED: [UNRECOGNIZED DRUG - OTHER] IH SCH (21:00)
[2018-07-30 22:59] LABS: HGB - HEMOGLOBIN 9.2 g/dL (14.0-18.0)
[2018-07-31] MEDS: SODIUM CHLORIDE 0.9% 1,000 ML IV SCH ×3 (00:17→13:34)
[2018-07-31] MEDS: SODIUM CHLORIDE FLUSH 0.9% 10 ML SYRINGE IVP SCH ×3 (00:18→17:06)
[2018-07-31 06:46] LABS: BASOPHILS # (AUTO) 0.1 10^3/uL (0.0-0.1); EOSINOPHILS % (AUTO) 0.8 %; HGB - HEMOGLOBIN 8.5 g/dL (14.0-18.0); LYMPHOCYTES # (AUTO) 1.6 10^3/uL (1.5-3.5); LYMPHOCYTES % (AUTO) 31.3 %; MEAN CORPUSCULAR HEMOGLOBIN 33.2 pg (27.0-31.0); MEAN CORPUSCULAR HGB CONC 33.4 g/dL (32.0-36.0); MEAN CORPUSCULAR VOLUME 99.2 fL (80.0-94.0); MEAN PLATELET VOLUME 8.8 fL (7.4-11.4); MONOCYTES # (AUTO) 0.6 10^3/uL (0.0-1.0); MONOCYTES % (AUTO) 11.9 %; NEUTROPHILS # (AUTO) 2.8 10^3/uL (1.5-6.6); PLT - PLATELET COUNT 138 10^3/uL (130-450); RED BLOOD COUNT 2.56 10^6/uL (4.70-6.10); RED CELL DISTRIBUTION WIDTH 13.7 % (12.0-15.0)
[2018-07-31 06:50] LABS: CALCIUM 7.9 mg/dL (8.5-10.3); CREATININE 0.8 mg/dL (0.6-1.2); MAGNESIUM 1.9 mg/dL (1.7-2.8)
[2018-07-31 06:55] LABS: DIGOXIN 0.9 ng/mL
[2018-07-31] MEDS: IPRATROPIUM/ALBUTEROL 3 ML NEB INH PRN (07:31)
[2018-07-31] MEDS: BUDESONIDE 0.5 MG/2 ML NEB INH SCH ×2 (07:31→19:13)
[2018-07-31] MEDS: FORMOTEROL FUMARATE NEB 20 MCG/2 ML INH SCH ×2 (07:31→19:13)
[2018-07-31] MEDS: CARVEDILOL 12.5 MG TABLET PO SCH ×2 (08:12→20:22)
[2018-07-31] MEDS: CHOLECALCIFEROL 1,000 UNIT TABLET PO SCH (08:12)
[2018-07-31] MEDS: amLODIPine 5 MG TABLET PO SCH (08:12)
[2018-07-31] MEDS: DIGOXIN 125 MCG TABLET PO SCH (08:12)
[2018-07-31] MEDS: POLYETHYLENE GLYCOL 3350 17 GM PACKET PO SCH (08:13)
[2018-07-31] MEDS: PANTOPRAZOLE 40 MG VIAL IVP SCH ×2 (08:13→16:36)
[2018-07-31] MEDS ORDERED: MULTIVITAMIN 10 ML, THIAMINE INJ 100 MG, FOLIC ACID INJ 1 MG in SODIUM CHLORIDE 0.9% 1,... IV SCH (09:00)
[2018-07-31] MEDS: ALISKIREN HEMIFUMARATE 300 MG PO SCH (10:12)
[2018-07-31] MEDS ORDERED: LIDO GARGLE 30 ML BOTTLE ONE (10:35)
--- NOTE | 2018-07-31 10:35 | ANESTHESIA ---
Pre-Anesthesia VS, & Labs - Diagnosis Diagnosis Upper GI bleed GI bleed - Procedure Upper endoscopy, EGD Vital Signs: Temp Pulse Resp BP Pulse Ox 36.6 C 84 16 122/61 98 07/31/18 08:05 07/31/18 08:05 07/31/18 08:05 07/31/18 08:05 07/31/18 08:05 Height 5 ft 8 in Weight (kg) 76 kg Body Mass Index 25.0 - NPO >8 hours - Lab Results Current Lab Results: Laboratory Tests 07/31/18 07:35: POC Whole Bld Glucose 93 07/31/18 06:22: Last Dose Date UNK, Last Dose Time UNK, Digoxin 0.9 07/31/18 06:22: Sodium 139, Potassium 3.8, Chloride 110, Carbon Dioxide 21, Anion Gap 8.0, BUN 30 H, Creatinine 0.8, Estimated GFR (MDRD) 96, Glucose 85, Calcium 7.9 L, Magnesium 1.9 07/31/18 06:22: WBC 5.0, RBC 2.56 L, Hgb 8.5 L, Hct 25.4 L, MCV 99.2 H, MCH 33.2 H, MCHC 33.4, RDW 13.7, Plt Count 138, MPV 8.8, Neut # (Auto) 2.8, Lymph # (Auto) 1.6, [place] # (Auto) 0.6, Eos # (Auto) 0.0, Baso # (Auto) 0.1, Absolute Nucleated RBC 0.01, Nucleated RBC % 0.2 07/31/18 06:00: POC Whole Bld Glucose 81 07/31/18 00:30: POC Whole Bld Glucose 82 07/30/18 22:54: Hgb 9.2 L, Hct 27.5 L 07/30/18 18:44: POC Whole Bld Glucose 92 07/30/18 15:05: Ethyl Alcohol < 5.0 07/30/18 15:05: Last Dose Date UNKNOWN, Last Dose Time UNKNOWN, Digoxin 0.7 07/30/18 15:05: PT 13.5 H, INR 1.2, APTT 18.8 L 07/30/18 15:05: Blood Type O POSITIVE, Antibody Screen NEGATIVE 07/30/18 15:05: Sodium 136, Potassium 4.8, Chloride 104, Carbon Dioxide 23, Anion Gap 9.0, BUN 57 H, Creatinine 0.9, Estimated GFR (MDRD) 83 L, Glucose 113 H, Calcium 8.5, Total Bilirubin 0.7, AST 18, ALT 14, Alkaline Phosphatase 38 L, Total Protein 5.5 L, Albumin 3.2, Globulin 2.3, Albumin/Globulin Ratio 1.4, Lipase 27 07/30/18 15:05: WBC 11.2 H, RBC 3.21 L, Hgb 10.8 L, Hct 31.0 L, MCV 96.5 H, MCH 33.6 H, MCHC 34.8, RDW 13.5, Plt Count 165, MPV 8.7, Neut # (Auto) 9.2 H, Lymph # (Auto) 1.2 L, [place] # (Auto) 0.6, Eos # (Auto) 0.0, Baso # (Auto) 0.1, Absolute Nucleated RBC 0.01, Nucleated RBC % 0.1 07/30/18 14:38: POC Whole Bld Glucose 106 H Fish Bones: 07/31/18 06:22 07/31/18 06:22 Home Medications and Allergies Active Medications Acetaminophen (Tylenol) 650 mg PO Q4HR PRN PRN Reason: Pain 1 to 4 Albuterol () 2.5 mg INH RTQ4H PRN PRN Reason: Wheezing Albuterol/Ipratropium (Duoneb) 3 ml INH Q4HR PRN PRN Reason: Wheezing Last Admin: 07/31/18 07:31 Dose: 3 ml Amlodipine Besylate (Norvasc) 10 mg PO DAILY [facility] Last Admin: 07/31/18 08:12 Dose: 10 mg Budesonide (Pulmicort) 0.5 mg INH RTBID [facility] Last Admin: 07/31/18 07:31 Dose: 0.5 mg Carvedilol (Coreg) 25 mg PO BID [facility] Last Admin: 07/31/18 08:12 Dose: 25 mg Cholecalciferol (Vitamin D3) 1,000 unit PO DAILY [facility] Last Admin: 07/31/18 08:12 Dose: 1,000 unit Digoxin (Lanoxin) 250 mcg PO DAILY [facility] Last Admin: 07/31/18 08:12 Dose: 250 mcg Formoterol Fumarate (Perforomist) 20 mcg INH RTBID [facility] Last Admin: 07/31/18 07:31 Dose: 20 mcg Sodium Chloride (Normal Saline 0.9%) 1,000 mls @ 100 mls/hr IV .Q10H [facility] Last Admin: 07/31/18 10:00 Dose: 100 mls/hr Multivitamins 10 ml/ Thiamine HCl 100 mg/ Folic Acid 1 mg/Sodium Chloride 1,011.2 mls @ 100 mls/hr IV DAILY [facility] Lorazepam (Ativan Inj (Vial)) 1 mg IVP Q30M PRN; Protocol PRN Reason: CIWA >8 Ondansetron HCl (Zofran Inj) 4 mg IVP Q6HR PRN PRN Reason: Nausea / Vomiting Pantoprazole Sodium (Protonix) 40 mg IVP BIDAC [facility] Last Admin: 07/31/18 08:13 Dose: 40 mg Aliskiren Hemifumarate [ Tekturna] 300 Mg 1 each PO DAILY [facility] Last Admin: 07/31/18 10:12 Dose: Not Given Melatonin 10 Mg 1 each PO QPM PRN PRN Reason: Restlessness Polyethylene Glycol (Miralax) 17 gm PO DAILY [facility] Last Admin: 07/31/18 08:13 Dose: Not Given Sodium Chloride (Normal Saline Flush 0.9%) 10 ml IVP PRN PRN PRN Reason: NEEDED PER PROVIDER ORDERS Sodium Chloride (Normal Saline Flush 0.9%) 10 ml IVP 0100,0900,1700 [facility] Last Admin: 07/31/18 08:13 Dose: 10 ml Trazodone HCl (Desyrel) 50 mg PO QPM [facility] Last Admin: 07/30/18 20:40 Dose: 50 mg Zolpidem Tartrate (Ambien) 5 mg PO QPM PRN PRN Reason: Insomnia Aliskiren Hemifumarate [Tekturna] 300 mg PO DAILY 02/05/13 Carvedilol [Coreg] 25 mg PO BID 02/05/13 Trazodone HCl 50 mg PO DAILY PM 02/05/13 Albuterol Sulfate [Ventolin Hfa] 2 puffs IH Q4HR PRN 06/18/13 Budesonide/Formoterol Fumarate [Symbicort 80-4.5 Mcg Inhaler] 2 puffs IH BID 06/18/13 Digoxin 250 mcg PO DAILY 01/27/14 Amlodipine Besylate 10 mg PO DAILY 01/26/17 Aspirin 325 mg PO DAILY 01/26/17 Cholecalciferol (Vitamin D3) [Vitamin D3] 1,000 unit PO DAILY 01/26/17 Ipratropium/Albuterol [Combivent Respimat] 1 puffs IH TID 01/26/17 Melatonin 10 mg PO QPM PRN 01/26/17 Valerian Root Extract [Valerian] 450 mg PO DAILY 01/26/17 Allergies/Adverse Reactions: Allergies Allergy/AdvReac Type Severity Reaction Status Date / Time hydromorphone HCl * Allergy Intermediate itch Verified 07/30/18 14:57 [From Dilaudid] lisinopril AdvReac Unknown Verified 07/30/18 14:57 Anes History & Medical History - Anesthetic History Anesthesia Complications: reports: No previous complications Family history of Anesthesia Complications: Denies Family history of Malignant Hyperthermia: Denies - Medical History Cardiovascular: reports: Hypertension, Atrial fibrillation, Murmur Pulmonary: reports: COPD Gastrointestinal: reports: GERD, GI bleed, Ulcers Urinary: reports: None, Incontinence, Other Neuro: reports: None Musculoskeletal: reports: Osteoarthritis Endocrine/Autoimmune: reports: None Blood Disorders: reports: Anemia Skin: reports: None Smoking Status: Former smoker Psychosocial: reports: No issues indicated, Substance abuse Other Past Medical History: urinary stream problems, urinary incontinence. Left knee arthritis - Surgical History General: Colonoscopy Orthopedic: Knee replacement Exam General: Alert, Oriented x3 Dental: WNL Mouth Opening: Greater than 4 Fingerbreadths Neck Mobility: Reduced Mallampati classification: II Thyromental Distance: greater than 6 cm Respiratory: Lungs clear Cardiovascular: Other (Irregular) Cognitive Status: Within normal limits Plan Anesthesia Type: Total IV Consent for Procedure(s) Verified and Reviewed: Yes Code Status: Attempt Resuscitation ASA classification: 3-Severe systemic disease Is this case an emergency?: Yes
[2018-07-31] MEDS ORDERED: LIDO GARGLE 30 ML BOTTLE PO ONE (11:14)
[2018-07-31] MEDS ORDERED: LACTATED RINGERS 1,000 ML IV ONE (11:15)
[2018-07-31] MEDS ORDERED: EPINEPHrine 1 MG/ML AMP ONE (11:23)
[2018-07-31] MEDS ORDERED: SODIUM CHLORIDE 0.9% 10 ML ONE (11:24)
[2018-07-31] MEDS ORDERED: MIDAZOLAM 2 MG/2 ML VIAL IVP ONE (11:30)
[2018-07-31] MEDS ORDERED: LIDOCAINE-MPF 2% 5 ML VIAL IM ONE (11:30)
[2018-07-31] MEDS ORDERED: PROPOFOL 200 MG/20 ML VIAL IVP ONE (11:30)
[2018-07-31] MEDS ORDERED: ePHEDrine 50 MG/ML VIAL IVP ONE (11:30)
--- NOTE | 2018-07-31 11:34 | IMMEDIATE POSTOPERATIVE NOTE ---
Immediate Postoperative Note - Procedure Note Procedure Date: 07/31/18 Pre-Op Diagnosis: upper GI bleed Procedure: EGD Post-Op Diagnosis: prepyloric gastric ulcer Primary Surgeon: scott Anesthesia Type: MAC Findings: non-bleeding prepyloric ulcer. Some old blood in stomach. Complications: No complications Estimated Blood Loss (in cc): 0 Specimens and Cultures: ulcer biopsy Plan of Care: These ulcers are usually from acid hypersecretion. Recommend discharge on PPI, alcohol cessation, empirically treating for HPylori, and stopping ASA and other NSAIDs.
[2018-07-31 14:02] LABS: HGB - HEMOGLOBIN 8.4 g/dL (14.0-18.0)
--- NOTE | 2018-07-31 14:32 | OPERATIVE REPORT ---
DATE OF SERVICE: 07/31/2018 Physician: Rafy Saldana MD PREOPERATIVE DIAGNOSIS: Upper gastrointestinal bleed. POSTOPERATIVE DIAGNOSIS: Nonbleeding prepyloric gastric ulcer. PROCEDURE: Esophagogastroduodenoscopy. INDICATIONS FOR PROCEDURE: The patient is a 72-year-old man who was admitted for 1 day of dizziness, melena, and anemia. Initially when he was admitted he stated that his bleeding episodes had stopped. However, his H and H continued to trend down overnight, so plans were made to take him for an EGD this morning. PROCEDURE IN DETAIL: The risks and benefits were explained to the patient, and he agreed to the procedure. He was taken to the operating room and given sedation. A timeout was performed and everyone in the room agreed to the procedure. We begun by inserting a well-lubricated endoscope through the oral cavity, down through the esophagus to the stomach. A small amount of blood was seen in the stomach and a prepyloric gastric ulcer was seen. The scope was then passed to the second portion of the duodenum. There were no abnormalities in the duodenum. The scope was then withdrawn back into the stomach. The rest of the stomach was inspected and no abnormalities were seen. The ulcer was lavaged and found to not be bleeding, despite the old blood in the stomach. A cold forceps biopsy was taken of the ulcer edge and sent to pathology. The scope was then withdrawn completely back to the esophagus where no abnormalities were seen and out the mouth, and the procedure was terminated. The patient tolerated the procedure well. He was taken back to his room in stable condition. ESTIMATED BLOOD LOSS: Zero. COMPLICATIONS: None. SPECIMENS: Gastric biopsy. PLAN: Expectant management back on the floor. TD: 07/31/2018 11:39 MARY JANE
[2018-07-31] MEDS: SODIUM CHLORIDE FLUSH 0.9% 10 ML SYRINGE IVP PRN (16:37)
--- NOTE | 2018-07-31 16:53 | PROVIDER PROGRESS NOTE ---
Subjective - Prog Note Date Prog Note Date: 07/31/18 - Subjective Pt reports feeling: Improved Subjective: pt report he feel better, dizziness is better. pt's HGB is drop. pt had EGD done by surgeon, reported pt had gastric ulcer but without acute bleeding. pt denies chest pain, SOB Current Medications - Current Medications Current Medications: Active Medications Acetaminophen (Tylenol) 650 mg PO Q4HR PRN PRN Reason: Pain 1 to 4 Albuterol () 2.5 mg INH RTQ4H PRN PRN Reason: Wheezing Albuterol/Ipratropium (Duoneb) 3 ml INH Q4HR PRN PRN Reason: Wheezing Last Admin: 07/31/18 07:31 Dose: 3 ml Amlodipine Besylate (Norvasc) 10 mg PO DAILY [facility] Last Admin: 07/31/18 08:12 Dose: 10 mg Budesonide (Pulmicort) 0.5 mg INH RTBID [facility] Last Admin: 07/31/18 07:31 Dose: 0.5 mg Carvedilol (Coreg) 25 mg PO BID [facility] Last Admin: 07/31/18 08:12 Dose: 25 mg Cholecalciferol (Vitamin D3) 1,000 unit PO DAILY [facility] Last Admin: 07/31/18 08:12 Dose: 1,000 unit Digoxin (Lanoxin) 250 mcg PO DAILY [facility] Last Admin: 07/31/18 08:12 Dose: 250 mcg Formoterol Fumarate (Perforomist) 20 mcg INH RTBID [facility] Last Admin: 07/31/18 07:31 Dose: 20 mcg Sodium Chloride (Normal Saline 0.9%) 1,000 mls @ 100 mls/hr IV .Q10H [facility] Last Admin: 07/31/18 13:34 Dose: 100 mls/hr Multivitamins 10 ml/ Thiamine HCl 100 mg/ Folic Acid 1 mg/Sodium Chloride 1,011.2 mls @ 100 mls/hr IV DAILY [facility] Last Admin: 07/31/18 13:35 Dose: 100 mls/hr Lorazepam (Ativan Inj (Vial)) 1 mg IVP Q30M PRN; Protocol PRN Reason: CIWA >8 Ondansetron HCl (Zofran Inj) 4 mg IVP Q6HR PRN PRN Reason: Nausea / Vomiting Pantoprazole Sodium (Protonix) 40 mg IVP BIDAC [facility] Last Admin: 07/31/18 16:36 Dose: 40 mg Aliskiren Hemifumarate [ Tekturna] 300 Mg 1 each PO DAILY [facility] Last Admin: 07/31/18 10:12 Dose: Not Given Melatonin 10 Mg 1 each PO QPM PRN PRN Reason: Restlessness Polyethylene Glycol (Miralax) 17 gm PO DAILY [facility] Last Admin: 07/31/18 08:13 Dose: Not Given Sodium Chloride (Normal Saline Flush 0.9%) 10 ml IVP PRN PRN PRN Reason: NEEDED PER PROVIDER ORDERS Last Admin: 07/31/18 16:37 Dose: 10 ml Sodium Chloride (Normal Saline Flush 0.9%) 10 ml IVP 0100,0900,1700 [facility] Last Admin: 07/31/18 08:13 Dose: 10 ml Trazodone HCl (Desyrel) 50 mg PO QPM [facility] Last Admin: 07/30/18 20:40 Dose: 50 mg Zolpidem Tartrate (Ambien) 5 mg PO QPM PRN PRN Reason: Insomnia Aliskiren Hemifumarate [Tekturna] 300 mg PO DAILY 02/05/13 Carvedilol [Coreg] 25 mg PO BID 02/05/13 Trazodone HCl 50 mg PO DAILY PM 02/05/13 Albuterol Sulfate [Ventolin Hfa] 2 puffs IH Q4HR PRN 06/18/13 Budesonide/Formoterol Fumarate [Symbicort 80-4.5 Mcg Inhaler] 2 puffs IH BID 06/18/13 Digoxin 250 mcg PO DAILY 01/27/14 Amlodipine Besylate 10 mg PO DAILY 01/26/17 Aspirin 325 mg PO DAILY 01/26/17 Cholecalciferol (Vitamin D3) [Vitamin D3] 1,000 unit PO DAILY 01/26/17 Ipratropium/Albuterol [Combivent Respimat] 1 puffs IH TID 01/26/17 Melatonin 10 mg PO QPM PRN 01/26/17 Valerian Root Extract [Valerian] 450 mg PO DAILY 01/26/17 Objective - Vital Signs/Intake & Output Reviewed Vital Signs: Yes Vital Signs: Vital Signs x48h Temp Pulse Resp BP Pulse Ox 07/31/18 16:11 36.8 C 81 18 115/58 L 99 02/24/19 11:59 76 14 115/54 L 100 07/31/18 11:53 36.5 C 86 16 102/54 L 100 Intake & Output: Intake & Output 07/28/18 07/29/18 07/30/18 07/31/18 23:59 23:59 23:59 23:59 Intake Total 5456.527 0295.334 Output Total 975 1250 Balance 823.929 9627.334 - Objective General Appearance: positive: No acute distress, Alert. negative: Lethargic Eyes Bilateral: positive: Normal inspection, PERRL, No lid inflammation, Conjunctivae nml ENT: positive: ENT inspection nml, Pharynx nml, No signs of dehydration. negative: Purulent nasal drainage, Pharyngeal erythema, Oral lesions Neck: positive: Nml inspection, Thyroid nml, No JVD, Trachea midline. negative: Thyromegaly, Lymphadenopathy (R), Lymphadenopathy (L), Stiff neck, Swelling/bruising, Tracheal deviation Respiratory: positive: Chest non-tender, No respiratory distress, Breath sounds nml. negative: Wheezes, Rales, Rhonchi Cardiovascular: positive: Regular rate & rhythm, No gallop. negative: Irregularly irregular, Extrasystoles, Tachycardia, Bradycardia, JVD present, Systolic murmur, Diastolic murmur Peripheral Pulses: 2+ Radial (R), 2+ Radial (L), 2+ Dorsalis pedis (R), 2+ Dorsalis pedis (L) Abdomen: positive: Non-tender, No organomegaly, Nml bowel sounds, No distention. negative: Tenderness, Guarding, Rebound Back: positive: Nml inspection. negative: CVA tenderness (R), CVA tenderness (L) Skin: positive: Color nml, No rash, Warm, Dry. negative: Cyanosis, Diaphoresis, Pallor Extremities: positive: Non-tender, Full ROM, Nml appearance. negative: Calf tenderness, Joint swelling, Rudi's sign/cords Neurologic/Psychiatric: positive: Oriented x3, Motor nml, Sensation nml, Mood/affect nml. negative: Weakness, Sensory loss, Facial droop, Slurred/abnml speech, Depressed mood/affect - Lab Results Fish Bones: 07/31/18 13:55 07/31/18 06:22 Other Labs: Lab Results x24hrs 07/31/18 07/31/18 07/31/18 Range/Units 13:55 11:48 07:35 WBC (4.8-10.8) x10^3/uL RBC (4.70-6.10) 10^6/uL Hgb 8.4 L (14.0-18.0) g/dL Hct 24.6 L (42.0-52.0) % MCV (80.0-94.0) fL MCH (27.0-31.0) pg MCHC (32.0-36.0) g/dL RDW (12.0-15.0) % Plt Count (130-450) 10^3/uL MPV (7.4-11.4) fL Neut # (Auto) (1.5-6.6) 10^3/uL Lymph # (Auto) (1.5-3.5) 10^3/uL Hardeman # (Auto) (0.0-1.0) 10^3/uL Eos # (Auto) (0.0-0.7) 10^3/uL Baso # (Auto) (0.0-0.1) 10^3/uL Absolute Nucleated RBC x10^3/uL Nucleated RBC % /100WBC Sodium (135-145) mmol/L Potassium (3.5-5.0) mmol/L Chloride (101-111) mmol/L Carbon Dioxide (21-32) mmol/L Anion Gap (6-13) BUN (6-20) mg/dL Creatinine (0.6-1.2) mg/dL Estimated GFR (MDRD) (>89) Glucose (70-100) mg/dL POC Whole Bld Glucose 81 93 (70 - 100) mg/dL Calcium (8.5-10.3) mg/dL Magnesium (1.7-2.8) mg/dL Urine Color Urine Clarity (CLEAR) Urine pH (5.0-7.5) PH Ur Specific [place] (1.002-1.030) Urine Protein (NEGATIVE) mg/dL Urine Glucose (UA) (NEGATIVE) mg/dL Urine Ketones (NEGATIVE) mg/dL Urine Occult Blood (NEGATIVE) Urine Nitrite (NEGATIVE) Urine Bilirubin (NEGATIVE) Urine Urobilinogen (NORMAL) E.U./dL Ur Leukocyte Esterase (NEGATIVE) Ur Microscopic Review Urine Culture Comments Last Dose Date Last Dose Time Digoxin ng/mL Blood Type Antibody Screen 07/31/18 07/31/18 07/31/18 Range/Units 06:22 06:22 06:22 WBC 5.0 (4.8-10.8) x10^3/uL RBC 2.56 L (4.70-6.10) 10^6/uL Hgb 8.5 L (14.0-18.0) g/dL Hct 25.4 L (42.0-52.0) % MCV 99.2 H (80.0-94.0) fL MCH 33.2 H (27.0-31.0) pg MCHC 33.4 (32.0-36.0) g/dL RDW 13.7 (12.0-15.0) % Plt Count 138 (130-450) 10^3/uL MPV 8.8 (7.4-11.4) fL Neut # (Auto) 2.8 (1.5-6.6) 10^3/uL Lymph # (Auto) 1.6 (1.5-3.5) 10^3/uL Hardeman # (Auto) 0.6 (0.0-1.0) 10^3/uL Eos # (Auto) 0.0 (0.0-0.7) 10^3/uL Baso # (Auto) 0.1 (0.0-0.1) 10^3/uL Absolute Nucleated RBC 0.01 x10^3/uL Nucleated RBC % 0.2 /100WBC Sodium 139 (135-145) mmol/L Potassium 3.8 (3.5-5.0) mmol/L Chloride 110 (101-111) mmol/L Carbon Dioxide 21 (21-32) mmol/L Anion Gap 8.0 (6-13) BUN 30 H (6-20) mg/dL Creatinine 0.8 (0.6-1.2) mg/dL Estimated GFR (MDRD) 96 (>89) Glucose 85 (70-100) mg/dL POC Whole Bld Glucose (70 - 100) mg/dL Calcium 7.9 L (8.5-10.3) mg/dL Magnesium 1.9 (1.7-2.8) mg/dL Urine Color Urine Clarity (CLEAR) Urine pH (5.0-7.5) PH Ur Specific [place] (1.002-1.030) Urine Protein (NEGATIVE) mg/dL Urine Glucose (UA) (NEGATIVE) mg/dL Urine Ketones (NEGATIVE) mg/dL Urine Occult Blood (NEGATIVE) Urine Nitrite (NEGATIVE) Urine Bilirubin (NEGATIVE) Urine Urobilinogen (NORMAL) E.U./dL Ur Leukocyte Esterase (NEGATIVE) Ur Microscopic Review Urine Culture Comments Last Dose Date UNK Last Dose Time UNK Digoxin 0.9 ng/mL Blood Type Antibody Screen 07/31/18 07/31/18 07/30/18 Range/Units 06:00 00:30 22:54 WBC (4.8-10.8) x10^3/uL RBC (4.70-6.10) 10^6/uL Hgb 9.2 L (14.0-18.0) g/dL Hct 27.5 L (42.0-52.0) % MCV (80.0-94.0) fL MCH (27.0-31.0) pg MCHC (32.0-36.0) g/dL RDW (12.0-15.0) % Plt Count (130-450) 10^3/uL MPV (7.4-11.4) fL Neut # (Auto) (1.5-6.6) 10^3/uL Lymph # (Auto) (1.5-3.5) 10^3/uL Hardeman # (Auto) (0.0-1.0) 10^3/uL Eos # (Auto) (0.0-0.7) 10^3/uL Baso # (Auto) (0.0-0.1) 10^3/uL Absolute Nucleated RBC x10^3/uL Nucleated RBC % /100WBC Sodium (135-145) mmol/L Potassium (3.5-5.0) mmol/L Chloride (101-111) mmol/L Carbon Dioxide (21-32) mmol/L Anion Gap (6-13) BUN (6-20) mg/dL Creatinine (0.6-1.2) mg/dL Estimated GFR (MDRD) (>89) Glucose (70-100) mg/dL POC Whole Bld Glucose 81 82 (70 - 100) mg/dL Calcium (8.5-10.3) mg/dL Magnesium (1.7-2.8) mg/dL Urine Color Urine Clarity (CLEAR) Urine pH (5.0-7.5) PH Ur Specific [place] (1.002-1.030) Urine Protein (NEGATIVE) mg/dL Urine Glucose (UA) (NEGATIVE) mg/dL Urine Ketones (NEGATIVE) mg/dL Urine Occult Blood (NEGATIVE) Urine Nitrite (NEGATIVE) Urine Bilirubin (NEGATIVE) Urine Urobilinogen (NORMAL) E.U./dL Ur Leukocyte Esterase (NEGATIVE) Ur Microscopic Review Urine Culture Comments Last Dose Date Last Dose Time Digoxin ng/mL Blood Type Antibody Screen 07/30/18 07/30/18 07/30/18 Range/Units 18:44 16:53 15:05 WBC (4.8-10.8) x10^3/uL RBC (4.70-6.10) 10^6/uL Hgb (14.0-18.0) g/dL Hct (42.0-52.0) % MCV (80.0-94.0) fL MCH (27.0-31.0) pg MCHC (32.0-36.0) g/dL RDW (12.0-15.0) % Plt Count (130-450) 10^3/uL MPV (7.4-11.4) fL Neut # (Auto) (1.5-6.6) 10^3/uL Lymph # (Auto) (1.5-3.5) 10^3/uL Hardeman # (Auto) (0.0-1.0) 10^3/uL Eos # (Auto) (0.0-0.7) 10^3/uL Baso # (Auto) (0.0-0.1) 10^3/uL Absolute Nucleated RBC x10^3/uL Nucleated RBC % /100WBC Sodium (135-145) mmol/L Potassium (3.5-5.0) mmol/L Chloride (101-111) mmol/L Carbon Dioxide (21-32) mmol/L Anion Gap (6-13) BUN (6-20) mg/dL Creatinine (0.6-1.2) mg/dL Estimated GFR (MDRD) (>89) Glucose (70-100) mg/dL POC Whole Bld Glucose 92 (70 - 100) mg/dL Calcium (8.5-10.3) mg/dL Magnesium (1.7-2.8) mg/dL Urine Color YELLOW Urine Clarity CLEAR (CLEAR) Urine pH 5.5 (5.0-7.5) PH Ur Specific [place] 1.020 (1.002-1.030) Urine Protein NEGATIVE (NEGATIVE) mg/dL Urine Glucose (UA) NEGATIVE (NEGATIVE) mg/dL Urine Ketones NEGATIVE (NEGATIVE) mg/dL Urine Occult Blood NEGATIVE (NEGATIVE) Urine Nitrite NEGATIVE (NEGATIVE) Urine Bilirubin NEGATIVE (NEGATIVE) Urine Urobilinogen 0.2 (NORMAL) (NORMAL) E.U./dL Ur Leukocyte Esterase NEGATIVE (NEGATIVE) Ur Microscopic Review NOT INDICATED Urine Culture Comments NOT INDICATED Last Dose Date Last Dose Time Digoxin ng/mL Blood Type O POSITIVE Antibody Screen NEGATIVE ABX Reporting Has patient been on IV antibiotics over the past 48 hours?: No Sepsis Event Note (H) - Evaluation Current Stage of Sepsis: Ruled out Assessment/Plan - Problem List (1) Black tarry stools Impression: 2 pt has significant HGB drop from 10.8 to 8.5. pt had immediately EGD. per surgeon report, he was not find acute bleeding site but pt did have gastric ulcer. Will overnight closely monitor pt if continue bleeding or HGB drop continue H&H to monitor pt Protonic IV bid and IVF hold pt's home meds ASA daily lab and vital monitor pt report black stool, with drop of HGB, and increase of BUN, with alcohol abuse and ASA use, hx of gastric ulcer, all indicate pt is going upper GI bleeding. consult with GI surgeon, plan to have EGD H&H to monitor pt Protonic IV bid and IVF hold pt's home meds ASA daily lab and vital monitor (2) Alcohol abuse Conclusion/Plan: 2 no withdrawal reported. continue: Banna bag Ativan PRN neuro check long hx of alcohol abuse, and continue to drink 750 wine daily, hx of alcohol withdrawal and delirium CIWA protocol and check glucose level Banna bag Ativan PRN neuro check (3) Chronic a-fib Conclusion/Plan: 2 stable, continue Coreg, digix pt is hemodynamic stable, HR is controlled at around 70. pt denies chest pain, palpitations continue home Digix and check Digix serum concentration continue Coreg tele monitor hold blood thinner for GI bleed, hold ASA. (4) HTN (hypertension) Conclusion/Plan: hemodynamic stable, continue home BP meds, vital monitor (5) History of COPD Conclusion/Plan: stable, 100% Sat on room air now. Albuterol and Duoneb PRN
[2018-07-31] MEDS: traZODone 50 MG TABLET PO SCH (20:22)
[2018-07-31 21:55] LABS: HGB - HEMOGLOBIN 7.8 g/dL (14.0-18.0)
[2018-08-01] MEDS: SODIUM CHLORIDE 0.9% 1,000 ML IV SCH ×2 (00:11→09:01)
[2018-08-01] MEDS: SODIUM CHLORIDE FLUSH 0.9% 10 ML SYRINGE IVP SCH ×2 (00:12→09:00)
[2018-08-01] MEDS: SODIUM CHLORIDE FLUSH 0.9% 10 ML SYRINGE IVP PRN (00:45)
[2018-08-01 05:37] LABS: BASOPHILS # (AUTO) 0.1 10^3/uL (0.0-0.1); BASOPHILS % (AUTO) 0.7 %; EOSINOPHILS # (AUTO) 0.1 10^3/uL (0.0-0.7); EOSINOPHILS % (AUTO) 1.2 %; LYMPHOCYTES # (AUTO) 1.3 10^3/uL (1.5-3.5); LYMPHOCYTES % (AUTO) 14.9 %; MEAN CORPUSCULAR HEMOGLOBIN 32.6 pg (27.0-31.0); MEAN PLATELET VOLUME 8.7 fL (7.4-11.4); MONOCYTES # (AUTO) 0.8 10^3/uL (0.0-1.0); MONOCYTES % (AUTO) 9.6 %; NEUTROPHILS # (AUTO) 6.3 10^3/uL (1.5-6.6); NEUTROPHILS % (AUTO) 73.6 %; PLT - PLATELET COUNT 145 10^3/uL (130-450); RED BLOOD COUNT 2.46 10^6/uL (4.70-6.10); RED CELL DISTRIBUTION WIDTH 13.8 % (12.0-15.0); WHITE BLOOD COUNT 8.5 x10^3/uL (4.8-10.8)
[2018-08-01 05:41] LABS: CREATININE 0.6 mg/dL (0.6-1.2)
[2018-08-01] MEDS: PANTOPRAZOLE 40 MG VIAL IVP SCH (06:05)
[2018-08-01] MEDS ORDERED: HYDROcod/ACETAM 7.5 MG/325 MG TABLET PO PRN (06:59)
[2018-08-01] MEDS: IPRATROPIUM/ALBUTEROL 3 ML NEB INH PRN (07:41)
[2018-08-01] MEDS: BUDESONIDE 0.5 MG/2 ML NEB INH SCH (07:41)
[2018-08-01] MEDS: FORMOTEROL FUMARATE NEB 20 MCG/2 ML INH SCH (07:41)
[2018-08-01 07:58] LABS: ABSOLUTE RETICS # AUTO 0.078 10^6/uL (0.020-0.110); MEAN RETIC VALUE 121.9; RED BLOOD COUNT 2.52 10^6/uL (4.70-6.10)
[2018-08-01] MEDS ORDERED: PRENATAL VITAMIN TABLET PO SCH (08:00)
[2018-08-01 08:18] LABS: % IRON SATURATION 23 % (20-50); IRON 60 ug/dL (45-182); TOTAL IRON BINDING CAPACITY 256 ug/dL (250-450); TRANSFERRIN 183 mg/dL (180-329)
[2018-08-01 08:41] LABS: FERRITIN 74.3 ng/mL (23.9-336.2)
[2018-08-01] MEDS: amLODIPine 5 MG TABLET PO SCH (08:59)
[2018-08-01] MEDS: CARVEDILOL 12.5 MG TABLET PO SCH (08:59)
[2018-08-01] MEDS: CHOLECALCIFEROL 1,000 UNIT TABLET PO SCH (08:59)
[2018-08-01] MEDS: DIGOXIN 125 MCG TABLET PO SCH (08:59)
[2018-08-01] MEDS ORDERED: THIAMINE 100 MG TABLET PO SCH (09:00)
[2018-08-01] MEDS: POLYETHYLENE GLYCOL 3350 17 GM PACKET PO SCH (09:00)
[2018-08-01] MEDS ORDERED: IOVERSOL 320 50 ML VIAL ONE (09:05)
[2018-08-01] MEDS ORDERED: IOVERSOL 320 100 ML VIAL IVP ONE ×2 (09:05→14:32)
[2018-08-01] MEDS: ALISKIREN HEMIFUMARATE 300 MG PO SCH ×2 (10:39→12:45)
--- NOTE | 2018-08-01 11:08 | CT Report ---
Reason: consistent abdominal pain, and nausea Procedure Date: 08/01/2018 Accession Number: [id number] / [id number] Procedure: CT - Abdomen/Pelvis W CPT Code: FULL RESULT: EXAM: CT ABDOMEN AND PELVIS EXAM DATE: 08/01/2018 10:41 AM. CLINICAL HISTORY: Consistent abdominal pain, and nausea. COMPARISONS: ABDOMEN/PELVIS W/ 01/14/2014 5:57 PM. TECHNIQUE: Routine helical CT imaging was performed through the abdomen and pelvis. IV contrast: Optiray 320 90 mL. Enteric contrast: Yes. Reconstructions: Coronal and sagittal. In accordance with CT protocol optimization, one or more of the following dose reduction techniques were utilized for this exam: automated exposure control, adjustment of mA and/or KV based on patient size, or use of iterative reconstructive technique. FINDINGS: This study is degraded by marked motion artifact limiting evaluation especially in the region of the pelvis and lower abdomen. Lung Bases: Bilateral dependent changes. Coronary calcifications. Liver: Liver demonstrates a 1.1 cm hyperdensity along the surface of segment 6 medially with question of focal distention of the capsule and possibly biliary ductal dilation. A 4 mm hyperdensity in segment 7 likely represents calcification. Gallbladder/Bile Ducts: Unremarkable. Spleen: Normal. Pancreas: Normal. Adrenal Glands: Normal. Kidneys: Normal. No masses or hydronephrosis. Peritoneal Cavity/Bowel: No free fluid, free air or adenopathy. No masses or acute inflammatory process. Pelvic Organs: Normal. The bladder and visualized pelvic organs are within normal limits. Vasculature: Markedly atherosclerotic without aneurysm. Bones: Approximately 6 mm of retrolisthesis of L3 on L4. Stable mild wedge deformity of T12. Other: None. IMPRESSION: Limited study due to extensive motion. The etiology of the patient's abdominal pain and nausea is not identified. 1.1 cm mass lesion along the inferior right lobe of the liver, indeterminate. [facility]
[2018-08-01 12:01] LABS: HGB - HEMOGLOBIN 8.9 g/dL (14.0-18.0)
[2018-08-01 12:24] VITALS: BP 106/66
--- NOTE | 2018-08-01 13:33 | Discharge Plan ---
Discharge Plan Disposition: Home, Self Care Condition: Poor Prescriptions: Omeprazole 40 mg PO BID #20 capsule. Diet: Regular Activity Restrictions: Activity as Tolerated Shower Restrictions: No (fall precaution) Instruction Topics: Bleeding Gastrointestinal, ED Alcohol Intoxication, Omeprazole tablets OTC Additional Instructions or Follow Up instructions: You may followup your PCP in one week, followup GI surgeon Dr. Saldana in 4-6 weeks to check the ulcer healing. Advise you hold your Aspirin or other NSAIDs, and cessation of alcohol drinking until you see your GI surgeon or PCP. Should your symptoms return or worsen, you may present ER or call 911 or your PCP for help. No Smoking: If you smoke, Please STOP! Call for help. Follow-up with: Rosy Atwood MD [Primary Care Provider] -
--- NOTE | 2018-08-01 13:47 | DISCHARGE SUMMARY ---
Discharge Summary Discharge Date: 08/01/18 Discharging Provider: SAUER Primary Care Provider: Dr. Atwood Condition at Discharge: Poor Discharge Disposition: 01 Home, Self Care Discharge Facility Name: home - DIAGNOSES Admission Diagnoses: (1) Black tarry stools (2) Alcohol abuse (3) Chronic a-fib (4) HTN (hypertension) (5) History of COPD Discharge Diagnoses with Status of Each Condition: 1) Black tarry stools pt's HGB is continuing going up to 8.9 now after pt had EGD on this hospital. BUN is 16 now from previous 57. pt was found in EGD no acute bleeding site but has gastric ulcer per surgeon Dr. Saldana report. Pt denies dizziness, chest pain, palpitation. Pt is prescribed PPI 40 mg bid. Pt is advised hold ASA until he see his PCP or surgeon, and other NSAIDs, and advise cessation of his alcohol drinking. pt is advise followup his surgeon in 4-6 week to check his gastric ulcer healing. (2) Alcohol abuse pt is advised for cessation of alcohol (3) Chronic a-fib pt is advised to resume blood thinner until he see his PCP or surgeon. resume home meds and followup PCP (4) HTN (hypertension) stable, resume home, followup PCP management (5) History of COPD stable, followup PCP management (6) mass lesion on CT of liver I discussed with pt, with today nurse together, about 1.1 cm mass lesion of liver in CT image study. pt has normal live enzyme and asymptomatic, tolerate regular diet. Advise pt followup image study or biopsy as out-pt. pt state he understand and will discuss with PCP for following up study. - HPI History of Present Illness: Mr. Duenas is 72-yrs-old male with a PMH significant for alcoholism with alcohol withdrawal syndrom and delirium tremens, hx of gastric ulcer, HTN, chronic Afib, Depression, COPD, who present ER for complain of feeling of fatigue and dizziness, and having an episode of black tarry stools today. Pt also reports nausea and vomiting. Pt report he has mild cramp pain at upper left quadrant at stomach area. Pt state he drink alcohol wine 750 cc every day. Pt report he take ASA 325 mg daily for his afib " my doctor let me take it for my Afib." pt denies hematemesis, chest pain, palpitation, fever, chill, shortness of break. Pt's HGB was 14.4 on 2017. Today pt's HGB is 10.8. pt also had significant elevated BUN at 58, normally pt has 20. Otherwise pt is hemodynamically stable. Surgeon was called at ER. Pt was on NPO either today or tomorrow for Endoscopy. - CONSULTS | PROCEDURES Consultations: Dr. Saldana Procedures: EGD - HOSPITAL COURSE Hospital Course: pt was admitted for black stool. pt had EGD done by our surgeon yesterday. Surgeon did not find acute bleeding site but did find gastric ulcer. Pt continue to be monitored by H&H, his HGB is going up. BUN is down to normal. pt is prescribed PPI for bid 40mg. pt is advised hold ASA or other NSAIDs, cessation of alcohol. pt is advised to followup PCP and surgeon for continuing monitor his gastric ulcer healing. - ALLERGIES Allergies/Adverse Reactions: Allergies Allergy/AdvReac Type Severity Reaction Status Date / Time hydromorphone HCl * Allergy Intermediate itch Verified 07/30/18 14:57 [From Dilaudid] lisinopril AdvReac Unknown Verified 07/30/18 14:57 - MEDICATIONS Home Medications: Ambulatory Orders Medication Instructions Recorded Confirmed Aliskiren Hemifumarate [Tekturna] 300 mg PO DAILY 02/05/13 07/30/18 Carvedilol [Coreg] 25 mg PO BID 02/05/13 07/30/18 Trazodone HCl 50 mg PO DAILY PM 02/05/13 07/30/18 Albuterol Sulfate [Ventolin Hfa] 2 puffs IH Q4HR PRN 06/18/13 07/30/18 Budesonide/Formoterol Fumarate 2 puffs IH BID 06/18/13 07/30/18 [Symbicort 80-4.5 Mcg Inhaler] Digoxin 250 mcg PO DAILY 01/27/14 07/30/18 Amlodipine Besylate 10 mg PO DAILY 01/26/17 07/30/18 Cholecalciferol (Vitamin D3) 1,000 unit PO DAILY 01/26/17 07/30/18 [Vitamin D3] Ipratropium/Albuterol [Combivent 1 puffs IH TID 01/26/17 07/30/18 Respimat] Melatonin 10 mg PO QPM PRN 01/26/17 07/30/18 Valerian Root Extract [Valerian] 450 mg PO DAILY 01/26/17 07/30/18 Omeprazole 40 mg PO BID #20 capsule. 08/01/18 - PHYSICAL EXAM AT DISCHARGE General Appearance: positive: No acute distress, Alert. negative: Lethargic Eyes Bilateral: positive: Normal inspection, PERRL, No lid inflammation, Conjunctivae nml ENT: positive: ENT inspection nml, Pharynx nml, No signs of dehydration. negative: Purulent nasal drainage, Pharyngeal erythema, Oral lesions Neck: positive: Nml inspection, Thyroid nml, No JVD, Trachea midline. negative: Thyromegaly, Lymphadenopathy (R), Lymphadenopathy (L), Stiff neck, Swelling/bruising, Tracheal deviation Respiratory: positive: Chest non-tender, No respiratory distress, Breath sounds nml. negative: Wheezes, Rales, Rhonchi Cardiovascular: positive: Regular rate & rhythm, No murmur, No gallop. negative: Irregularly irregular, Extrasystoles, Tachycardia, Bradycardia, JVD present, Systolic murmur, Diastolic murmur Peripheral Pulses: positive: 2+ Abdomen: positive: Non-tender, No organomegaly, Nml bowel sounds, No distention. negative: Tenderness, Guarding, Rebound Back: positive: Nml inspection. negative: CVA tenderness (R), CVA tenderness (L) Skin: positive: Color nml, No rash, Warm, Dry. negative: Cyanosis, Diaphoresis, Pallor, Skin rash Extremities: positive: Non-tender, Full ROM, Nml appearance. negative: Calf tenderness, Joint swelling, Rudi's sign/cords Neurologic/Psychiatric: positive: Oriented x3, Motor nml, Sensation nml, Mood/affect nml. negative: Weakness, Sensory loss, Facial droop, Slurred/abnml speech, Depressed mood/affect - LABS Result Diagrams: 08/01/18 11:48 08/01/18 04:53 - SEPSIS Current Stage of Sepsis: Ruled out - FOLLOW UP Follow Up: You may followup your PCP in one week, followup GI surgeon Dr. Saldana in 4-6 weeks to check the ulcer healing. Advise you hold your Aspirin or other NSAIDs, and cessation of alcohol drinking until you see your GI surgeon or PCP. Should your symptoms return or worsen, you may present ER or call 911 or your PCP for help. - TIME SPENT Time Spent in Discharge (Minutes): 50
[2018-08-01] MEDS ORDERED: IOVERSOL 320 50 ML VIAL PO ONE (14:32)
== END 2018-08-01 14:13 | disposition home or self-care (01) ==
LOC: ED 14:19 → OBS 16:19
PROVIDERS: ADMIT Nurse Practitioner Gerontology; ATTEND Nurse Practitioner Gerontology
PROC: 0DB78ZX Excision of Stomach, Pylorus, Via Natural or Artificial Opening Endoscopic, Diagnostic (ICD-10-PCS; principal; 2018-07-30)
DX: R19.5 Other fecal abnormalities (principal); K25.9 Gastric ulcer, unspecified as acute or chronic, without hemorrhage or perforation; F10.10 Alcohol abuse, uncomplicated; I48.2 Chronic atrial fibrillation; I10 Essential (primary) hypertension; J44.9 Chronic obstructive pulmonary disease, unspecified; F32.9 Major depressive disorder, single episode, unspecified; K21.9 Gastro-esophageal reflux disease without esophagitis; K76.9 Liver disease, unspecified
CPT/HCPCS: 36415; 43239; 74177; 80048; 80053; 80162; 81003; 82607; 82728; 83540; 83615; 83690; 83735; 84466; 85014; 85018; 85025; 85044; 85610; 85730; 86850; 86900; 86901; 94640; 96361; 96374; 96376; 99284; A9270; G0378; J2060; J3411; J7120; J7626; Q9967; 80320; 81001; 85027; 87086

== ENCOUNTER 2018-08-13 10:28 | Observation (INO) | payer MEDICARE, OTHER ==
[2018-08-13] MEDS ORDERED: FOLIC ACID INJ 1 MG, THIAMINE INJ 100 MG, MAGNESIUM SULFATE 2 GM, MULTIVITAMIN 10 ML in... IV STA ×5 (11:18)
--- NOTE | 2018-08-13 11:21 | ED Physician Documentation ---
PD HPI ALTERED MENTAL STATUS - Stated complaint Stated Complaint: CONFUSION - Chief complaint Chief Complaint: Neuro - History obtained from History obtained from: Patient, Family - History of Present Illness Timing - onset: Enter time (814), Today Timing - duration: Minutes Timing - details: Abrupt onset, Still present Quality / character: Confused, Other (having trouble with simple ordinary tasks such as opening a car door or turning the TV off.) Associated symptoms: Dyspnea, General weakness. No: Fever, Headache, Stiff neck, Cough, NVD, Urinary sx, Focal weakness, Seizure activity, Syncope Contributing factors: New medication, Other (hx of alcohol). No: Anticoagulated Basline status: Alert and oriented X 3, Ambulatory, Independent Similar symptoms before: Has not had sx before Recently seen: Admitted - Additional information Additional information: 72-year-old alcoholic male recently admitted to the hospital for a GI bleed has now developed some acute difficulty in performing simple every day tasks. He is having trouble opening the car door he is having trouble turning off his iPod. He is able to remember dates and times and places and he is able to recall recent events. He is not having any lateralizing weakness. He denies any trouble seen. He has discontinued use of alcohol more than 10 days ago. He states that the alcohol withdrawal was not difficult. He does note that today was the first day he has been able to walk without stumbling and he has been short of breath until today. Review of Systems Constitutional: denies: Fever Eyes: denies: Decreased vision, Photophobia Ears: denies: Ear pain Nose: denies: Rhinorrhea / runny nose, Congestion Throat: denies: Sore throat Cardiac: denies: Chest pain / pressure, Palpitations Respiratory: denies: Dyspnea, Cough GI: denies: Abdominal Pain, Nausea, Vomiting, Constipation, Diarrhea : denies: Dysuria, Frequency Skin: denies: Rash Musculoskeletal: denies: Neck pain, Back pain, Extremity pain Neurologic: reports: Confused. denies: Generalized weakness, Focal weakness, Numbness, Difficulty speaking, Headache, Head injury, LOC PD PAST MEDICAL HISTORY - Past Medical History Cardiovascular: Hypertension, Atrial fibrillation, Murmur Respiratory: COPD Neuro: None Endocrine/Autoimmune: None GI: GERD, GI bleed, Ulcers : None, Incontinence, Other HEENT: None Psych: None Musculoskeletal: Osteoarthritis Derm: None - Past Surgical History Past Surgical History: Yes General: Colonoscopy Ortho: Knee replacement - Present Medications Home Medications: Ambulatory Orders Medication Instructions Recorded Confirmed Aliskiren Hemifumarate [Tekturna] 300 mg PO DAILY 02/05/13 08/13/18 Carvedilol [Coreg] 25 mg PO BID 02/05/13 08/13/18 Trazodone HCl 50 mg PO DAILY PM 02/05/13 08/13/18 Albuterol Sulfate [Ventolin Hfa] 2 puffs IH Q4HR PRN 06/18/13 08/13/18 Budesonide/Formoterol Fumarate 2 puffs IH BID 06/18/13 08/13/18 [Symbicort 80-4.5 Mcg Inhaler] Digoxin 250 mcg PO DAILY 01/27/14 08/13/18 Amlodipine Besylate 10 mg PO DAILY 01/26/17 08/13/18 Cholecalciferol (Vitamin D3) 1,000 unit PO DAILY 01/26/17 08/13/18 [Vitamin D3] Ipratropium/Albuterol [Combivent 1 puffs IH TID 01/26/17 08/13/18 Respimat] Melatonin 10 mg PO QPM PRN 01/26/17 08/13/18 Valerian Root Extract [Valerian] 450 mg PO DAILY 01/26/17 08/13/18 Omeprazole 40 mg PO BID #20 capsule. 08/01/18 08/13/18 - Allergies Allergies/Adverse Reactions: Allergies Allergy/AdvReac Type Severity Reaction Status Date / Time hydromorphone HCl * Allergy Intermediate itch Verified 08/13/18 11:39 [From Dilaudid] lisinopril AdvReac Unknown Verified 08/13/18 11:39 - Social History Does the pt smoke?: No Smoking Status: Current some day smoker Does the pt drink ETOH?: Yes Does the pt have substance abuse?: No - Immunizations Immunizations are current?: Yes Immunizations: TDAP current <10years - POLST Patient has POLST: No PD ED PE NORMAL - Vitals Vital signs reviewed: Yes (normal ) - General General: Alert and oriented X 3, No acute distress, Well developed/nourished, Other (pale but alert and interactive) - HEENT HEENT: Atraumatic, PERRL, EOMI, Ears normal, Moist mucous membranes, Pharynx benign, Dentition benign - Neck Neck: Supple, no meningeal sign, No bony TTP - Cardiac Cardiac: RRR, No murmur - Respiratory Respiratory: No respiratory distress, Clear bilaterally - Abdomen Abdomen: Soft, Non tender - Back Back: No CVA TTP, No spinal TTP - Derm Derm: Normal color, Warm and dry, No rash - Extremities Extremities: No deformity, No edema - Neuro Neuro: Alert and oriented X 3, 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, No motor deficit, No sensory deficit, Normal speech Eye Opening: Spontaneous Motor: Obeys Commands Verbal: Oriented GCS Score: 15 - Psych Psych: Normal mood, Normal affect Results - Vitals Vitals: Vital Signs - 24 hr 08/13/18 08/13/18 08/13/18 10:33 12:20 13:37 Temperature 36.9 C Heart Rate 63 57 L 57 L Respiratory 18 21 18 Rate Blood Pressure 104/61 111/59 L 100/77 O2 Saturation 100 98 97 Oxygen O2 Source [] Room air O2 Source Room air - EKG (time done) 1129 Rate: Rate (enter#) (48) QRS: Low voltage Compare to prior EKG: Unchanged from prior EKG (SPT 01-26-17 no changes) Computer interpretation: Agree with computer - Labs Labs: Laboratory Tests 08/13/18 08/13/18 08/13/18 11:27 11:38 11:38 WBC 10.4 RBC 2.14 L Hgb 6.8 L* Hct 21.9 L MCV 102.6 H MCH 31.9 H MCHC 31.1 L RDW 17.8 H Plt Count 463 H MPV 7.5 Neut # (Auto) 7.6 H Lymph # (Auto) 1.4 L [place] # (Auto) 1.3 H Eos # (Auto) 0.1 Baso # (Auto) 0.1 Absolute Nucleated RBC 0.01 Nucleated RBC % 0.1 Sodium 135 Potassium 4.5 Chloride 102 Carbon Dioxide 23 Anion Gap 10.0 BUN 14 Creatinine 0.9 Estimated GFR (MDRD) 83 L Glucose 99 Calcium 8.0 L Total Bilirubin 0.4 AST 21 ALT 15 Alkaline Phosphatase 51 Troponin I Total Protein 5.7 L Albumin 3.1 L Globulin 2.6 Albumin/Globulin Ratio 1.2 Lipase 42 Urine Color YELLOW Urine Clarity CLEAR Urine pH 6.0 Ur Specific Bath 1.025 Urine Protein NEGATIVE Urine Glucose (UA) NEGATIVE Urine Ketones NEGATIVE Urine Occult Blood NEGATIVE Urine Nitrite NEGATIVE Urine Bilirubin NEGATIVE Urine Urobilinogen 0.2 (NORMAL) Ur Leukocyte Esterase NEGATIVE Ur Microscopic Review NOT INDICATED Urine Culture Comments NOT INDICATED 08/13/18 11:38 WBC RBC Hgb Hct MCV MCH MCHC RDW Plt Count MPV Neut # (Auto) Lymph # (Auto) [place] # (Auto) Eos # (Auto) Baso # (Auto) Absolute Nucleated RBC Nucleated RBC % Sodium Potassium Chloride Carbon Dioxide Anion Gap BUN Creatinine Estimated GFR (MDRD) Glucose Calcium Total Bilirubin AST ALT Alkaline Phosphatase Troponin I < 0.04 Total Protein Albumin Globulin Albumin/Globulin Ratio Lipase Urine Color Urine Clarity Urine pH Ur Specific Bath Urine Protein Urine Glucose (UA) Urine Ketones Urine Occult Blood Urine Nitrite Urine Bilirubin Urine Urobilinogen Ur Leukocyte Esterase Ur Microscopic Review Urine Culture Comments - Rads (name of study) CT head without Radiology: Prelim report reviewed (Impression: Mild to moderate senescent changes without CT evidence of acute intracranial disease.), EMP read indepedently, See rad report Procedures - IVC sono (time) 1115 Bedside IVC sono: IVC measures (cm) (1.37), Dehydration (est <1 liter deficit) PD MEDICAL DECISION MAKING - ED course Complexity details: reviewed old records, reviewed results, re-evaluated patient, considered differential, d/w patient, d/w family ED course: 72-year-old alcoholic male who was recently stopped drinking has now developed some difficulty in performing simple everyday tasks without focal neurologic deficit or overt confusion. He does have memory of recent events as well. Here in the emerge department is found to be minimally dehydrated he does have a pale color and his blood counts are checked as well. He is administered a banana bag intravenously. I am concerned his presentation may be the delayed effects of Wernicke's encephalopathy. He is ultimately found to be significantly anemic and in need of blood. His confusion with simple tasks has improved. Dr. Alves and Dr. Kasper are consulted for care of the patient in the hospital and blood is started. Departure - Departure Disposition: 66 [facility] DC/Xfer Clinical Impression: Altered mental status Qualifiers: Altered mental status type: transient alteration of awareness Qualified Code(s): R40.4 - Transient alteration of awareness Anemia Qualifiers: Anemia type: other cause Other causes of anemia: acute posthemorrhagic Qualified Code(s): D62 - Acute posthemorrhagic anemia
[2018-08-13 12:01] LABS: ALBUMIN 3.1 g/dL (3.2-5.5); ALBUMIN/GLOBULIN RATIO 1.2 (1.0-2.2); BILIRUBIN,TOTAL 0.4 mg/dL (0.2-1.0); CREATININE 0.9 mg/dL (0.6-1.2); TOTAL PROTEIN 5.7 g/dL (6.7-8.2)
[2018-08-13 12:08] LABS: BILIRUBIN,URINE NEGATIVE (NEGATIVE); GLUCOSE, URINE (UA) NEGATIVE (NEGATIVE); KETONES,URINE (UA) NEGATIVE (NEGATIVE); LEUKOCYTE ESTERASE, URINE NEGATIVE (NEGATIVE); NITRITE,URINE NEGATIVE (NEGATIVE); OCCULT BLOOD,URINE NEGATIVE (NEGATIVE); PROTEIN,URINE NEGATIVE (NEGATIVE); UROBILINOGEN,URINE 0.2 (NORMAL) E.U./dL (NORMAL)
[2018-08-13 12:11] LABS: CLARITY,URINE CLEAR (CLEAR)
[2018-08-13 12:20] LABS: BASOPHILS # (AUTO) 0.1 10^3/uL (0.0-0.1); BASOPHILS % (AUTO) 0.9 %; EOSINOPHILS # (AUTO) 0.1 10^3/uL (0.0-0.7); EOSINOPHILS % (AUTO) 0.8 %; LYMPHOCYTES # (AUTO) 1.4 10^3/uL (1.5-3.5); LYMPHOCYTES % (AUTO) 13.1 %; MEAN CORPUSCULAR HEMOGLOBIN 31.9 pg (27.0-31.0); MEAN CORPUSCULAR HGB CONC 31.1 g/dL (32.0-36.0); MEAN CORPUSCULAR VOLUME 102.6 fL (80.0-94.0); MEAN PLATELET VOLUME 7.5 fL (7.4-11.4); MONOCYTES # (AUTO) 1.3 10^3/uL (0.0-1.0); MONOCYTES % (AUTO) 12.4 %; NEUTROPHILS # (AUTO) 7.6 10^3/uL (1.5-6.6); NEUTROPHILS % (AUTO) 72.8 %; PLT - PLATELET COUNT 463 10^3/uL (130-450); RED BLOOD COUNT 2.14 10^6/uL (4.70-6.10); RED CELL DISTRIBUTION WIDTH 17.8 % (12.0-15.0); WHITE BLOOD COUNT 10.4 x10^3/uL (4.8-10.8)
[2018-08-13 12:22] LABS: HGB - HEMOGLOBIN 6.8 g/dL (14.0-18.0)
--- NOTE | 2018-08-13 12:44 | CT Report ---
Reason: acute memory loss Procedure Date: 08/13/2018 Accession Number: [id number] / [id number] Procedure: CT - HEAD WO CPT Code: FULL RESULT: EXAM: CT HEAD EXAM DATE: 08/13/2018 11:57 AM. CLINICAL HISTORY: Acute memory loss. COMPARISON: HEAD W/O 01/27/2014 11:53 PM. TECHNIQUE: Multiaxial CT images were obtained from the foramen magnum to the vertex. Reformats: Sagittal and coronal. IV contrast: None. In accordance with CT protocol optimization, one or more of the following dose reduction techniques were utilized for this exam: automated exposure control, adjustment of mA and/or KV based on patient size, or use of iterative reconstructive technique. FINDINGS: Parenchyma: No intraparenchymal hemorrhage. No evidence of mass, midline shift, or CT findings of infarction. Pereira-white differentiation is distinct. Moderate periventricular hypoattenuation seen. Extraaxial Spaces: Mild atrophy present. No subdural or epidural collections identified. Ventricles: Normal in size and position. Sinuses and Orbits: Imaged paranasal sinuses, orbits, and mastoids show no significant abnormality. Bones: No evidence of fracture or calvarial defect. Other: None. IMPRESSION: Mild to moderate senescent changes without CT evidence of acute intracranial disease. RADIA
[2018-08-13] MEDS ORDERED: SODIUM CHLORIDE FLUSH 0.9% 10 ML SYRINGE IVP PRN (14:18)
[2018-08-13] MEDS ORDERED: ACETAMINOPHEN 325 MG TABLET PO PRN (14:18)
[2018-08-13] MEDS ORDERED: ONDANSETRON 4 MG/2 ML VIAL IVP PRN (14:18)
[2018-08-13] MEDS ORDERED: IPRATROPIUM/ALBUTEROL 3 ML NEB INH PRN (14:30)
[2018-08-13] MEDS ORDERED: ALBUTEROL NEB 2.5 MG/3 ML INH PRN (14:30)
--- NOTE | 2018-08-13 14:40 | HISTORY & PHYSICAL EXAMINATION ---
Chief Complaint - Chief Complaint Chief Complaint: dizziness and weakness History of Present Illness - History of Present Illness HPI Comment/Other: Mr. Duenas is 72-yrs-old male with a PMH significant for alcoholism with alcohol withdrawal syndrome and delirium tremens, hx of GI bleeding with gastric ulcer, HTN, chronic Afib, Depression, COPD, who present ER for complain of feeling of fatigue, dizziness, and black stools. pt is alert and oriented, and appropriate to answer my questions. Pt report he still had black stool after his last discharge, although at the time he was discharged, he had stable HGB, no black stool. He felt very weakness even he can not turn on this [place]. Pt state he did not drink alcohol since he was discharged without difficult or withdrawal. Pt also report he did not take ASA 325 mg daily since his last discharge. Pt had EGD about two weeks ago. GI surgeon at that time found pt had non-bleeding gastric ulcer. pt denies hematemesis, chest pain, palpitation, fever, chill, shortness of break. Pt's HGB was 8.9 on 2018. Today pt's HGB is 6.8. Otherwise pt is hemodynamically stable. Surgeon Dr. Saldana was called by ER. History - Past Medical History Cardiovascular: reports: Hypertension, Atrial fibrillation, Murmur Respiratory: reports: COPD Neuro: reports: None Endocrine/Autoimmune: reports: None GI: reports: GERD, GI bleed, Ulcers : reports: None, Incontinence, Other HEENT: reports: None Psych: reports: None Musculoskeletal: reports: Osteoarthritis Derm: reports: None MRSA Hx?: No - Past Surgical History General: reports: Colonoscopy Ortho: reports: Knee replacement - Family & Social History Family History Comment/Other: pt state he is living with his at [facility] Living arrangement: At home Living Situation: With spouse/s.o. Social History Notes: pt has long history for alcoholic abuse, pt denies cigarett smoking or drug problem. - POLST Patient has POLST: No Meds/Allgy - Home Medications Home Medications: Ambulatory Orders Medication Instructions Recorded Confirmed Aliskiren Hemifumarate [Tekturna] 300 mg PO DAILY 02/05/13 08/13/18 Carvedilol [Coreg] 25 mg PO BID 02/05/13 08/13/18 Trazodone HCl 50 mg PO DAILY PM 02/05/13 08/13/18 Albuterol Sulfate [Ventolin Hfa] 2 puffs IH Q4HR PRN 06/18/13 08/13/18 Budesonide/Formoterol Fumarate 2 puffs IH BID 06/18/13 08/13/18 [Symbicort 80-4.5 Mcg Inhaler] Digoxin 250 mcg PO DAILY 01/27/14 08/13/18 Amlodipine Besylate 10 mg PO DAILY 01/26/17 08/13/18 Cholecalciferol (Vitamin D3) 1,000 unit PO DAILY 01/26/17 08/13/18 [Vitamin D3] Ipratropium/Albuterol [Combivent 1 puffs IH TID 01/26/17 08/13/18 Respimat] Melatonin 10 mg PO QPM PRN 01/26/17 08/13/18 Valerian Root Extract [Valerian] 450 mg PO DAILY 01/26/17 08/13/18 Omeprazole 40 mg PO BID #20 capsule. 08/01/18 08/13/18 - Allergies Allergies/Adverse Reactions: Allergies Allergy/AdvReac Type Severity Reaction Status Date / Time hydromorphone HCl * Allergy Intermediate itch Verified 08/13/18 11:39 [From Dilaudid] lisinopril AdvReac Unknown Verified 08/13/18 11:39 Review of Systems - Constitutional Constitutional: reports: Fatigue, Weakness. denies: Fever, Chills, Malaise, Poor appetite, Diaphoresis, Night sweats - Eyes Eyes: denies: Pain, Irritation, Amaurosis, Blurred vision, Spots in vision, Field loss, Vision loss, Dipolpia - Ears, Nose & Throat Ears, Nose & Throat: denies: Ear pain, Hearing loss, Hearing aids, Tinnitus, Vertigo, Nasal pain, Nasal discharge, Nosebleeds, Nasal obstruction, Nasal congestion, Dentures, Sore throat, Hoarseness - Cardiovascular Cariovascular: denies: Irregular heart rate, Palpitations, Chest pain, Edema, Lightheadedness, Syncope, Exertional dyspnea, Decr. exercise tolerance - Respiratory Respiratory: denies: Cough, Sputum production, Wheezing, Snoring, Hemoptysis, Orthopnea, SOB at rest, SOB with exertion - Gastrointestinal Gastrointestinal: reports: Black stools. denies: Abdominal pain, Abdominal distention, Constipation, Diarrhea, Change in bowel habits, Rectal bleeding, Bloody stools, Nausea, Vomiting, Bile emesis, Keenan blood emesis, Coffee grounds emesis, Reflux/heartburn - Genitourinary Genitourinary: denies: Dysuria, Frequency, Urgency, Hematuria, Incontinence, Flank pain, Nocturia, Urethral discharge - Musculoskeletal Musculoskeletal: denies: Muscle pain, Back pain, Muscle aches, Stiffness, Limited range of motion, Muscle weakness, Gout, Joint pain - Integumentary Integumentary: denies: Rash, Pruritis, Lesions, Dryness, Lumps, Acne, Pigment changes, Nail changes - Neurological Neurological: reports: General weakness. denies: Focal weakness, Headache, Dizziness, Numbness, Memory problems, Pre-existing deficit, Abnormal gait, Seizures, Incoordination, Slurred speech - Psychiatric Psychiatric: denies: Depression, Anxiety, Suicidal, Delusions, Hallucinations, Homicidal - Endocrine Endocrine: denies: Polyuria, Polydypsia, Polyphagia, Intolerance to cold, Intolerance to heat - Hematologic/Lymphatic Hematologic/Lymphatic: reports: Anemia. denies: Bruising, Petechiae, Blood clots, Lymphadenopathy, Bleeding tendencies, Recurrent infections Exam - Vital Signs Reviewed Vital Signs: Yes Vital Signs: Vital Signs x48h Temp Pulse Resp BP Pulse Ox 08/13/18 13:37 57 L 18 100/77 97 08/13/18 12:20 57 L 21 111/59 L 98 08/13/18 10:33 36.9 C 63 18 104/61 100 - Physical Exam General Appearance: positive: No acute distress, Alert. negative: Lethargic Eyes Bilateral: positive: Normal inspection, PERRL, No lid inflammation, Conjunctivae nml ENT: positive: ENT inspection nml, Pharynx nml, No signs of dehydration. negati ve: Purulent nasal drainage, Pharyngeal erythema, Oral lesions Neck: positive: Nml inspection, Thyroid nml, No JVD, Trachea midline. negative: Thyromegaly, Lymphadenopathy (R), Lymphadenopathy (L), Stiff neck, Swelling/bruising, Tracheal deviation Respiratory: positive: Chest non-tender, No respiratory distress, Breath sounds nml. negative: Wheezes, Rales, Rhonchi Cardiovascular: positive: Regular rate & rhythm, No murmur, No gallop, Bradycardia. negative: Irregularly irregular, Extrasystoles, Tachycardia, Systolic murmur, Diastolic murmur Peripheral Pulses: positive: 2+ Abdomen: positive: Non-tender, No organomegaly, Nml bowel sounds, No distention. negative: Guarding, Rebound Back: positive: Nml inspection. negative: CVA tenderness (R), CVA tenderness (L) Skin: positive: Pallor. negative: No rash, Warm, Dry, Cyanosis, Diaphoresis, Skin rash Extremities: positive: Non-tender, Full ROM, Nml appearance. negative: Calf tenderness, Joint swelling, Rudi's sign/cords Neurologic/Psychiatric: positive: Oriented x3, Sensation nml, Mood/affect nml. negative: Weakness, Sensory loss, Facial droop, Slurred/abnml speech, Depressed mood/affect Sepsis Event Note (H) - Evaluation Current Stage of Sepsis: Ruled out Conclusion/Plan - Problem List (1) Black tarry stools Conclusion/Plan: pt report black stool, with drop of HGB to 6.8, hx of GI bleeding and gastric ulcer, previous EGD reveals non-bleeding gastric ulcer. transfusion two unit of blood consult with GI surgeon, followup H&H to monitor pt Protonic IV bid and IVF daily lab and vital monitor (2) Alcohol abuse Conclusion/Plan: long hx of alcohol abuse, hx of alcohol withdrawal and delirium. Pt report he did not drink alcohol for about two weeks without withdrawal one tablet daily B1 daily (3) Chronic a-fib Conclusion/Plan: pt is hemodynamic stable, HR is controlled and slight bradycardia. pt denies chest pain, palpitations continue home Digix and check Digix serum concentration continue Coreg tele monitor hold blood thinner for GI bleed, hold ASA. (4) HTN (hypertension) Conclusion/Plan: hemodynamic stable, continue home BP meds, vital monitor (5) History of COPD Conclusion/Plan: stable, 100% Sat on room air now. Albuterol and Duoneb PRN - Lab Results Fish Bones: 08/13/18 11:38 08/13/18 11:38 Core Measures - Anticipated LOS I expect patient to be DC'd or transferred within 96 hours.: Yes - DVT/VTE - Prophylaxis VTE/DVT Device ordered at admit?: Yes VTE/DVT Prophylaxis med ordered at admit?: Yes
[2018-08-13 14:47] LABS: ABSOLUTE RETICS # AUTO 0.216 10^6/uL (0.020-0.110); MEAN RETIC VALUE 138.2; RED BLOOD COUNT 2.16 10^6/uL (4.70-6.10)
[2018-08-13 15:08] LABS: FERRITIN 49.4 ng/mL (23.9-336.2)
[2018-08-13 15:48] LABS: % IRON SATURATION 33 % (20-50); IRON 115 ug/dL (45-182); TOTAL IRON BINDING CAPACITY 350 ug/dL (250-450); TRANSFERRIN 250 mg/dL (180-329)
[2018-08-13] MEDS ORDERED: SODIUM CHLORIDE 0.9% 500 ML IV ONE (18:14)
[2018-08-13] MEDS: SODIUM CHLORIDE FLUSH 0.9% 10 ML SYRINGE IVP SCH (18:22)
[2018-08-13] MEDS ORDERED: traZODone 50 MG TABLET PO SCH (21:00)
[2018-08-13] MEDS: PANTOPRAZOLE 40 MG VIAL IVP SCH (21:22)
[2018-08-13 22:08] LABS: HGB - HEMOGLOBIN 8.7 g/dL (14.0-18.0)
[2018-08-13] MEDS: CARVEDILOL 12.5 MG TABLET PO SCH (22:10)
[2018-08-14] MEDS: SODIUM CHLORIDE FLUSH 0.9% 10 ML SYRINGE IVP SCH ×2 (04:53→09:45)
[2018-08-14 07:01] LABS: CREATININE 0.9 mg/dL (0.6-1.2)
[2018-08-14 07:15] LABS: DIGOXIN 0.8 ng/mL
[2018-08-14 07:32] LABS: BASOPHILS # (AUTO) 0.1 10^3/uL (0.0-0.1); BASOPHILS % (AUTO) 0.6 %; EOSINOPHILS # (AUTO) 0.1 10^3/uL (0.0-0.7); EOSINOPHILS % (AUTO) 0.4 %; LYMPHOCYTES # (AUTO) 1.2 10^3/uL (1.5-3.5); LYMPHOCYTES % (AUTO) 8.6 %; MEAN CORPUSCULAR HEMOGLOBIN 32.1 pg (27.0-31.0); MEAN CORPUSCULAR VOLUME 103.3 fL (80.0-94.0); MEAN PLATELET VOLUME 7.5 fL (7.4-11.4); MONOCYTES # (AUTO) 1.6 10^3/uL (0.0-1.0); MONOCYTES % (AUTO) 11.9 %; NEUTROPHILS # (AUTO) 10.6 10^3/uL (1.5-6.6); NEUTROPHILS % (AUTO) 78.5 %; PLT - PLATELET COUNT 355 10^3/uL (130-450); RED BLOOD COUNT 2.81 10^6/uL (4.70-6.10); RED CELL DISTRIBUTION WIDTH 17.5 % (12.0-15.0); WHITE BLOOD COUNT 13.5 x10^3/uL (4.8-10.8)
[2018-08-14 07:38] VITALS: BP 126/68
[2018-08-14 08:33] LABS: PLATELET ESTIMATE, MANUAL NORMAL (130-450,000) (NORMAL); PLATELET MORPHOLOGY NORMAL APPEARANCE (NORMAL)
[2018-08-14] MEDS ORDERED: DIGOXIN 125 MCG TABLET PO SCH (09:00)
[2018-08-14] MEDS ORDERED: PRENATAL VITAMIN TABLET PO SCH (09:00)
[2018-08-14] MEDS ORDERED: amLODIPine 5 MG TABLET PO SCH (09:00)
[2018-08-14] MEDS ORDERED: THIAMINE 100 MG TABLET PO SCH (09:00)
[2018-08-14] MEDS ORDERED: CHOLECALCIFEROL 1,000 UNIT TABLET PO SCH (09:00)
[2018-08-14] MEDS ORDERED: POLYETHYLENE GLYCOL 3350 17 GM PACKET PO SCH (09:00)
[2018-08-14] MEDS ORDERED: ALISKIREN HEMIFUMARATE 300 MG PO SCH (09:00)
[2018-08-14] MEDS: CARVEDILOL 12.5 MG TABLET PO SCH (09:43)
[2018-08-14] MEDS: PANTOPRAZOLE 40 MG VIAL IVP SCH (09:46)
[2018-08-14] MEDS ORDERED: SODIUM CHLORIDE 0.9% 1,000 ML IV SCH (10:00)
--- NOTE | 2018-08-14 10:49 | PROVIDER PROGRESS NOTE ---
Hospitalist Cross-cover Note - Cross-Cover Note Cross-Cover Note: ER called Dr. Saldana on yesterday for pt's GI bleeding. I called Dr. Saldana this morning for pt's care plan since I did not know Dr. Saldana's care plan for pt and no documentation in [email or web address]. Dr. Saldana told me he will not do any EGD or colonscopy for pt at this admission, he do not believe pt had GI bleeding. pt told me today morning his gave some iron pill for him at home.
--- NOTE | 2018-08-14 11:24 | CONSULTATION NOTE ---
Referring Provider Consult Date: 08/13/18 Chief Complaint - Chief Complaint Chief Complaint: AMS History of Present Illness - History of Present Illness HPI Comment/Other: 72 yo man presented two weeks ago with an acute GI bleed. He had an EGD a that time which showed a gastric ulcer, non-bleeding at that point. He was subsequently discharged. He presents now with AMS and a slightly lower H/H than two weeks ago. He also states he has had darker stools than normal, but is taking iron. History - Past Medical History Cardiovascular: reports: Hypertension, Atrial fibrillation, Murmur Respiratory: reports: COPD Neuro: reports: None Endocrine/Autoimmune: reports: None GI: reports: GERD, GI bleed, Ulcers : reports: None, Incontinence, Other HEENT: reports: None Psych: reports: None Musculoskeletal: reports: Osteoarthritis Derm: reports: None MRSA Hx?: No - Past Surgical History General: reports: Colonoscopy Ortho: reports: Knee replacement - Family & Social History Family History Comment/Other: pt state he is living with his at [facility] Living arrangement: At home Living Situation: With spouse/s.o. Social History Notes: pt has long history for alcoholic abuse, pt denies cigarett smoking or drug problem. - POLST Patient has POLST: No Meds/Allgy - Home Medications Home Medications: Ambulatory Orders Medication Instructions Recorded Confirmed Aliskiren Hemifumarate [Tekturna] 300 mg PO DAILY 02/05/13 08/13/18 Carvedilol [Coreg] 25 mg PO BID 02/05/13 08/13/18 Trazodone HCl 50 mg PO DAILY PM 02/05/13 08/13/18 Albuterol Sulfate [Ventolin Hfa] 2 puffs IH Q4HR PRN 06/18/13 08/13/18 Budesonide/Formoterol Fumarate 2 puffs IH BID 06/18/13 08/13/18 [Symbicort 80-4.5 Mcg Inhaler] Digoxin 250 mcg PO DAILY 01/27/14 08/13/18 Amlodipine Besylate 10 mg PO DAILY 01/26/17 08/13/18 Cholecalciferol (Vitamin D3) 1,000 unit PO DAILY 01/26/17 08/13/18 [Vitamin D3] Ipratropium/Albuterol [Combivent 1 puffs IH TID 01/26/17 08/13/18 Respimat] Melatonin 10 mg PO QPM PRN 01/26/17 08/13/18 Valerian Root Extract [Valerian] 450 mg PO DAILY 01/26/17 08/13/18 Omeprazole 40 mg PO BID #20 capsule. 08/01/18 08/13/18 - Allergies Allergies/Adverse Reactions: Allergies Allergy/AdvReac Type Severity Reaction Status Date / Time hydromorphone HCl * Allergy Intermediate itch Verified 08/13/18 11:39 [From Dilaudid] lisinopril AdvReac Unknown Verified 08/13/18 11:39 Review of Systems - Constitutional Constitutional: reports: Fatigue - Gastrointestinal Gastrointestinal: reports: Change in bowel habits Exam - Vital Signs Vital Signs: Vital Signs x48h Temp Pulse Resp BP Pulse Ox 08/14/18 07:37 37.4 C 74 18 126/68 93 08/14/18 06:24 36.7 C 69 16 132/67 H 93 - Physical Exam General Appearance: positive: No acute distress Eyes Bilateral: positive: Normal inspection ENT: positive: ENT inspection nml Neck: positive: Nml inspection Respiratory: positive: Chest non-tender Abdomen: positive: Non-tender Back: positive: Nml inspection Skin: positive: Color nml Extremities: positive: Non-tender Neurologic/Psychiatric: positive: Oriented x3 Conclusion/Plan - Diagnosis Diagnosis: AMS - Plan Plan: Pt received a blood transfusion and states his mental status is back to normal. His AMS presented mostly as confusion. His blood count has remained stable during this admission. Pt clear to be discharged home as there is no evidence of active bleeding with follow up in clinic for possible repeat EGD/colonoscopy. His last colonoscopy was ~20 years ago. - Lab Results Fish Bones: 08/14/18 06:35 08/14/18 06:35
[2018-08-14 12:51] LABS: HGB - HEMOGLOBIN 8.8 g/dL (14.0-18.0)
--- NOTE | 2018-08-14 13:08 | XRAY Report ---
Reason: SOB Procedure Date: 08/14/2018 Accession Number: [id number] / [id number] Procedure: XR - Chest 1 View X-Ray CPT Code: 95555 FULL RESULT: EXAM: CHEST RADIOGRAPHY EXAM DATE: 08/14/2018 12:59 PM. CLINICAL HISTORY: Shortness of breath COMPARISON: ABDOMEN/PELVIS 08/01/2018 10:41 AM 01/27/2014 10:39 PM. TECHNIQUE: 1 view. FINDINGS: Lungs/Pleura: No focal opacities evident. No pleural effusion. No pneumothorax. Mediastinum: Within exam limitations, the cardiomediastinal contour is normal. Other: None. IMPRESSION: No acute cardiopulmonary abnormality demonstrated. RADIA
--- NOTE | 2018-08-14 14:08 | Discharge Plan ---
Discharge Plan Disposition: 01 Home, Self Care Condition: Poor Diet: Regular Activity Restrictions: Activity as Tolerated Shower Restrictions: No (fall precaution) Instruction Topics: Bleeding Gastrointestinal Additional Instructions or Follow Up instructions: you may followup your PCP in one week, followup surgical clinic for possible repeat EGD/colonoscopy. Your Occult stool test is negative, and HGB is stable. Your GI surgeon discharge you today. Should your symptoms return or worsen, you may present ER or call 911 or your PCP for help. No Smoking: If you smoke, Please STOP! Call for help. Follow-up with: Rosy Atwood MD [Primary Care Provider] -
--- NOTE | 2018-08-14 14:15 | DISCHARGE SUMMARY ---
Discharge Summary Discharge Date: 08/14/18 Discharging Provider: SAUER Primary Care Provider: Dr. Atwood Condition at Discharge: Stable Discharge Disposition: 01 Home, Self Care Discharge Facility Name: home - DIAGNOSES Admission Diagnoses: (1) Black tarry stools (2) Alcohol abuse (3) Chronic a-fib (4) HTN (hypertension) (5) History of COPD Discharge Diagnoses with Status of Each Condition: 1) Black tarry stools pt report his give her iron pill to him. occult stool test today is negative. pt's HGB is stable. Dr. Saldana did not think pt had acute GI bleeding, and discharge pt today. he advise pt follow up out-pt for possible EGD/colonoscopy pt had EGD done about two weeks which reveals pt had non-bleeding gastric ulcer continue home med PPI, followup PCP and GI surgeon (2) Alcohol abuse pt report he did not drink for about 10 days. (3) Chronic a-fib stable, continue home meds, hold NSAIDs for healing of gastric ulcer (4) HTN (hypertension) stable, continue home meds, followup PCP (5) History of COPD stable, continue home meds, followup PCP - HPI History of Present Illness: Mr. Duenas is 72-yrs-old male with a PMH significant for alcoholism with alcohol withdrawal syndrome and delirium tremens, hx of GI bleeding with gastric ulcer, HTN, chronic Afib, Depression, COPD, who present ER for complain of feeling of fatigue, dizziness, and black stools. pt is alert and oriented, and appropriate to answer my questions. Pt report he still had black stool after his last discharge, although at the time he was discharged, he had stable HGB, no black stool. He felt very weakness even he can not turn on this [place]. Pt state he did not drink alcohol since he was discharged without difficult or withdrawal. Pt also report he did not take ASA 325 mg daily since his last discharge. Pt had EGD about two weeks ago. GI surgeon at that time found pt had non-bleeding gastric ulcer. pt denies hematemesis, chest pain, palpitation, fever, chill, shortness of break. Pt's HGB was 8.9 on 2018. Today pt's HGB is 6.8. Otherwise pt is hemodynamically stable. Surgeon Dr. Saldana was called by ER. - HOSPITAL COURSE Hospital Course: pt was admitted for complain of feeling of fatigue, dizziness, and black stools. pt was found to have HGB 6.8, pt had two unit of blood transfusion. continuing H&H reveals HGB stable. Occult stool test is negative. Surgeon Dr. Wiggins will not do EGD or colonoscopy to pt, and he discharge pt. pt is advised cessation of his alcohol drink, no NSAIDs, continue PPI, followup GI surgeon as out-pt - ALLERGIES Allergies/Adverse Reactions: Allergies Allergy/AdvReac Type Severity Reaction Status Date / Time hydromorphone HCl * Allergy Intermediate itch Verified 08/13/18 11:39 [From Dilaudid] lisinopril AdvReac Unknown Verified 08/13/18 11:39 - MEDICATIONS Home Medications: Ambulatory Orders Medication Instructions Recorded Confirmed Aliskiren Hemifumarate [Tekturna] 300 mg PO DAILY 02/05/13 08/13/18 Carvedilol [Coreg] 25 mg PO BID 02/05/13 08/13/18 Trazodone HCl 50 mg PO DAILY PM 02/05/13 08/13/18 Albuterol Sulfate [Ventolin Hfa] 2 puffs IH Q4HR PRN 06/18/13 08/13/18 Budesonide/Formoterol Fumarate 2 puffs IH BID 06/18/13 08/13/18 [Symbicort 80-4.5 Mcg Inhaler] Digoxin 250 mcg PO DAILY 01/27/14 08/13/18 Amlodipine Besylate 10 mg PO DAILY 01/26/17 08/13/18 Cholecalciferol (Vitamin D3) 1,000 unit PO DAILY 01/26/17 08/13/18 [Vitamin D3] Ipratropium/Albuterol [Combivent 1 puffs IH TID 01/26/17 08/13/18 Respimat] Melatonin 10 mg PO QPM PRN 01/26/17 08/13/18 Valerian Root Extract [Valerian] 450 mg PO DAILY 01/26/17 08/13/18 Omeprazole 40 mg PO BID #20 capsule. 08/01/18 08/13/18 - PHYSICAL EXAM AT DISCHARGE General Appearance: positive: No acute distress, Alert. negative: Lethargic Eyes Bilateral: positive: Normal inspection, PERRL, No lid inflammation, Conjunctivae nml ENT: positive: ENT inspection nml, Pharynx nml, No signs of dehydration. negative: Purulent nasal drainage, Pharyngeal erythema, Oral lesions Neck: positive: Nml inspection, Thyroid nml, No JVD, Trachea midline. negative: Thyromegaly, Lymphadenopathy (R), Lymphadenopathy (L), Stiff neck, Swelling/bruising, Tracheal deviation Respiratory: positive: Chest non-tender, No respiratory distress, Breath sounds nml. negative: Wheezes, Rales, Rhonchi Cardiovascular: positive: Regular rate & rhythm, No murmur, No gallop. negative: Irregularly irregular, Extrasystoles, Tachycardia, Bradycardia, Systolic murmur, Diastolic murmur Peripheral Pulses: positive: 2+ Abdomen: positive: Non-tender, No organomegaly, Nml bowel sounds, No distention. negative: Tenderness, Guarding, Rebound Back: positive: Nml inspection. negative: CVA tenderness (R), CVA tenderness (L) Skin: positive: Color nml, No rash, Warm, Dry. negative: Cyanosis, Diaphoresis, Pallor Extremities: positive: Non-tender, Full ROM, Nml appearance. negative: Calf tenderness, Joint swelling, Rudi's sign/cords Neurologic/Psychiatric: positive: Oriented x3, Motor nml, Sensation nml, Mood/affect nml. negative: Weakness, Sensory loss, Facial droop, Slurred/abnml speech, Depressed mood/affect - LABS Result Diagrams: 08/14/18 12:35 08/14/18 06:35 - SEPSIS Current Stage of Sepsis: Ruled out - FOLLOW UP Follow Up: you may followup your PCP in one week, followup surgical clinic for possible repeat EGD/colonoscopy. Your Occult stool test is negative, and HGB is stable. Your GI surgeon discharge you today. Should your symptoms return or worsen, you may present ER or call 911 or your PCP for help. - TIME SPENT Time Spent in Discharge (Minutes): 50
== END 2018-08-14 14:29 | disposition home or self-care (01) ==
LOC: ED 10:28 → OBS 14:18
PROVIDERS: ADMIT Nurse Practitioner Gerontology; ATTEND Nurse Practitioner Gerontology
DX: R19.5 Other fecal abnormalities (principal); K25.4 Chronic or unspecified gastric ulcer with hemorrhage; R40.4 Transient alteration of awareness; D62 Acute posthemorrhagic anemia; E86.0 Dehydration; F10.20 Alcohol dependence, uncomplicated; I48.2 Chronic atrial fibrillation; I10 Essential (primary) hypertension; J44.9 Chronic obstructive pulmonary disease, unspecified; K21.9 Gastro-esophageal reflux disease without esophagitis; F32.9 Major depressive disorder, single episode, unspecified; F17.200 Nicotine dependence, unspecified, uncomplicated; Z79.899 Other long term (current) drug therapy; Z79.51 Long term (current) use of inhaled steroids
CPT/HCPCS: 36415; 36430; 70450; 71045; 80048; 80053; 80162; 81003; 82272; 82607; 82728; 83540; 83615; 83690; 84466; 84484; 85014; 85018; 85025; 85044; 86850; 86900; 86901; 86920; 93005; 96365; 96375; 96376; 99284; 99285; A9270; G0378; J3411; P9016; 81001; 87086; 99283

== ENCOUNTER 2018-10-14 10:42 | Outpatient (CLI) | payer MEDICARE, OTHER ==
--- NOTE | 2018-10-14 11:48 | XRAY Report ---
Reason: CHEST LUMP Procedure Date: 10/14/2018 Accession Number: [id number] / [id number] Procedure: WCP - Chest 2 View X-Ray CPT Code: 08620 FULL RESULT: EXAM: CHEST RADIOGRAPHY EXAM DATE: 10/14/2018 10:52 AM. CLINICAL HISTORY: Chest lump. COMPARISON: CHEST 1 VIEW 08/14/2018 12:46 PM. TECHNIQUE: 2 views. FINDINGS: Lungs/Pleura: No focal opacities evident. No pleural effusion. No pneumothorax. Normal volumes. Mediastinum: Tortuous aorta with mild calcifications, heart is not enlarged. Other: A marker along the anterior chest wall is seen on the lateral radiograph with no definite soft tissue abnormality in the region. On the frontal view the palpable marker is questionably in the midline along the inferior sternum, no abnormality is detected in this region. IMPRESSION: Limited visualization with no abnormality detected in the region marked as palpable. RADIA
== END 2018-10-14 10:43 | disposition home or self-care (01) ==
LOC: DI.WCP 10:42
PROVIDERS: ATTEND Family Medicine
DX: R22.2 Localized swelling, mass and lump, trunk (principal)
CPT/HCPCS: 71046

== ENCOUNTER 2020-08-08 09:23 | Outpatient (CLI) | payer MEDICARE, OTHER ==
[2020-08-08 12:01] LABS: BASOPHILS # (AUTO) 0.1 10^3/uL (0.0-0.1); BASOPHILS % (AUTO) 1.3 %; EOSINOPHILS # (AUTO) 0.1 10^3/uL (0.0-0.7); EOSINOPHILS % (AUTO) 1.2 %; HGB - HEMOGLOBIN 14.9 g/dL (14.0-18.0); LYMPHOCYTES # (AUTO) 1.5 10^3/uL (1.5-3.5); MEAN CORPUSCULAR HEMOGLOBIN 31.1 pg (27.0-31.0); MEAN CORPUSCULAR HGB CONC 32.4 g/dL (32.0-36.0); MEAN PLATELET VOLUME 10.7 fL (7.4-11.4); MONOCYTES # (AUTO) 1.1 10^3/uL (0.0-1.0); MONOCYTES % (AUTO) 15.5 %; NEUTROPHILS # (AUTO) 4.1 10^3/uL (1.5-6.6); PLT - PLATELET COUNT 238 10^3/uL (130-450); RED BLOOD COUNT 4.79 10^6/uL (4.70-6.10); RED CELL DISTRIBUTION WIDTH 13.2 % (12.0-15.0); WHITE BLOOD COUNT 6.9 x10^3/uL (4.8-10.8)
[2020-08-08 13:16] LABS: THYROID STIMULATING HORMONE 1.08 uIU/mL (0.34-5.60)
[2020-08-08 13:27] LABS: ALBUMIN 3.9 g/dL (3.2-5.5); ALBUMIN/GLOBULIN RATIO 1.6 (1.0-2.2); ALKALINE PHOSPHATASE 55 IU/L (42-121); ALT ALANINE AMINOTRANSFERASE 22 IU/L (10-60); AST ASPARTATE AMINOTRANSFERASE 25 IU/L (10-42); BILIRUBIN,TOTAL 0.8 mg/dL (0.2-1.0); BUN - BLOOD UREA NITROGEN 17 mg/dL (6-20); CALCIUM 9.5 mg/dL (8.5-10.3); CARBON DIOXIDE - CO2 27 mmol/L (21-32); CHLORIDE 106 mmol/L (101-111); CHOL/HDL RATIO 2.6 (<5.0); CHOLESTEROL 201 mg/dL; GFR - MDRD 73 (>89); GLUCOSE 100 mg/dL (70-100); HDL CHOLESTEROL 77 mg/dL; LDL CHOLESTEROL,CALCULATED 114 mg/dL; LDL/HDL RATIO 1.5 (<3.6); POTASSIUM 4.9 mmol/L (3.5-5.0); SODIUM 140 mmol/L (135-145); TOTAL PROTEIN 6.4 g/dL (6.7-8.2); TRIGLYCERIDES 48 mg/dL; VLDL CHOLESTEROL 10 mg/dL
== END 2020-08-08 23:59 | disposition home or self-care (01) ==
LOC: LAB.WCP 09:23
PROVIDERS: ATTEND Family Medicine
DX: E87.1 Hypo-osmolality and hyponatremia (principal); N40.0 Benign prostatic hyperplasia without lower urinary tract symptoms; E78.5 Hyperlipidemia, unspecified; I48.91 Unspecified atrial fibrillation; F32.9 Major depressive disorder, single episode, unspecified; Z87.891 Personal history of nicotine dependence; K25.9 Gastric ulcer, unspecified as acute or chronic, without hemorrhage or perforation
CPT/HCPCS: 36415; 80053; 80061; 83721; 84153; 84443; 85025

== ENCOUNTER 2021-05-21 14:52 | Outpatient (CLI) | payer MEDICARE, OTHER ==
[2021-05-21 18:13] LABS: CALCIUM 9.5 mg/dL (8.5-10.3); CREATININE 1.2 mg/dL (0.6-1.2)
== END 2021-05-21 23:59 | disposition home or self-care (01) ==
LOC: LAB.N 14:52
PROVIDERS: ATTEND Family Medicine
DX: I48.91 Unspecified atrial fibrillation (principal); I49.9 Cardiac arrhythmia, unspecified
CPT/HCPCS: 36415; 80048; 84484

== ENCOUNTER 2021-06-16 08:00 | Outpatient (CLI) | payer MEDICARE, OTHER | END 2021-06-16 23:59 | LOC: LAB.N 08:00 | PROVIDERS: ATTEND Family Medicine | DX: R06.02 Shortness of breath (principal); Z20.822 Contact with and (suspected) exposure to COVID-19 | CPT/HCPCS: 87275; 87276 ==

== ENCOUNTER 2021-06-16 11:25 | Emergency (ER) | payer MEDICARE, OTHER ==
--- NOTE | 2021-06-16 13:20 | Ultrasound Report ---
PROCEDURE: Duplex Ext Veins Right INDICATIONS: leg pain TECHNIQUE: Real-time imaging, as well as color and pulse Doppler interrogation, were performed of the lower extr emity deep veins from the inguinal ligament to the popliteal fossa. COMPARISON: None. FINDINGS: The deep veins are normally compressible, and free of intraluminal thrombus. Color and pu lse Doppler demonstrate normal phasic intraluminal flow. There is normal augmentation response to di stal compression maneuver. Hypoechoic collection is noted in posterior right thigh soft tissue and measures 21.6 x 4.8 x 8.2 cm in size. No internal vascularity is seen. Internal low-level echo is seen. Through acoustic enhanceme nt is noted. IMPRESSION: 1. No evidence of DVT in visualized right lower extremity veins. 2. Suggestion of lower chest hematoma in soft tissue along posterior thigh extending from right glute al region to posterior right knee and measures approximately 21.6 x 4.8 x 8.2 cm in size. Reviewed by: Herman Fisher MD on 06/16/2021 1:19 PM PST Approved by: Herman Fisher MD on 06/16/2021 1:19 PM PST Station ID: [id number]
--- NOTE | 2021-06-16 13:35 | ED Physician Documentation ---
PD HPI DYSPNEA - Stated complaint Stated Complaint: RT LEG PX - Chief complaint Chief Complaint: Resp - History obtained from History obtained from: Patient - Additional information Additional information: 75-year-old gentleman on anticoagulation for A. fib was sent from urgent care for evaluation of leg pain. About a week ago he was stepping and he felt a pop in the leg and subsequently developed severe pain in the hamstring. He was seen initially at urgent care and advised rest ice elevation compression and hydrocodone and was reevaluated today and sent here for evaluation for potential DVT. Patient also notes months worth of worsening exertional dyspnea and now dyspnea at rest. Not associated with chest pains or pedal edema other than related to the leg injury. Also 5 days ago he had a syncopal episode and hit the left side of his face on the ground and has persistent bruising on his face. Review of Systems Constitutional: reports: Fatigue. denies: Fever, Chills Cardiac: denies: Chest pain / pressure, Palpitations Respiratory: reports: Dyspnea. denies: Cough PD PAST MEDICAL HISTORY - Past Medical History Cardiovascular: Hypertension, Atrial fibrillation, Murmur Respiratory: COPD Neuro: None Endocrine/Autoimmune: None GI: GERD, GI bleed, Ulcers : None, Incontinence, Other HEENT: None Psych: None Musculoskeletal: Osteoarthritis Derm: None - Past Surgical History Past Surgical History: Yes General: Colonoscopy Ortho: Knee replacement - Present Medications Home Medications: Ambulatory Orders Medication Instructions Recorded Confirmed Aliskiren Hemifumarate [Tekturna] 300 mg PO DAILY 02/05/13 08/13/18 Carvedilol [Coreg] 25 mg PO BID 02/05/13 08/13/18 Trazodone HCl 50 mg PO DAILY PM 02/05/13 08/13/18 Albuterol Sulfate [Ventolin Hfa] 2 puffs IH Q4HR PRN 06/18/13 08/13/18 Budesonide/Formoterol Fumarate 2 puffs IH BID 06/18/13 08/13/18 [Symbicort 80-4.5 Mcg Inhaler] Digoxin 250 mcg PO DAILY 01/27/14 08/13/18 Amlodipine Besylate 10 mg PO DAILY 01/26/17 08/13/18 Cholecalciferol (Vitamin D3) 1,000 unit PO DAILY 01/26/17 08/13/18 [Vitamin D3] Ipratropium/Albuterol [Combivent 1 puffs IH TID 01/26/17 08/13/18 Respimat] Melatonin 10 mg PO QPM PRN 01/26/17 08/13/18 Valerian Root Extract [Valerian] 450 mg PO DAILY 01/26/17 08/13/18 Omeprazole 40 mg PO BID #20 capsule. 08/01/18 08/13/18 HYDROcod/ACETAM 5/325 [Zachary 5/325] 1 - 2 tab PO Q6H PRN #30 tablet 06/16/21 - Allergies Allergies/Adverse Reactions: Allergies Allergy/AdvReac Type Severity Reaction Status Date / Time hydromorphone HCl * Allergy Intermediate itch Verified 06/16/21 11:44 [From Dilaudid] lisinopril AdvReac Unknown Verified 06/16/21 11:44 - Social History Does the pt smoke?: No Smoking Status: Former smoker Does the pt drink ETOH?: Yes Does the pt have substance abuse?: No - Immunizations Immunizations are current?: Yes Immunizations: TDAP current <10years - POLST Patient has POLST: No PD ED PE NORMAL - Vitals Vital signs reviewed: Yes - General General: Alert and oriented X 3, No acute distress - HEENT HEENT: PERRL, EOMI, Other (Left periorbital contusion and healing laceration in the left eyebrow) - Cardiac Cardiac: Other (Rapid and irregular, no murmur) - Respiratory Respiratory: Other (Diminished at both bases, left more than right) - Abdomen Abdomen: Normal bowel sounds, Soft, Non tender - Back Back: No CVA TTP, No spinal TTP - Extremities Extremities: Other (Massive ecchymosis with tenderness and swelling from the inferior left buttock down to the knee and ecchymosis continuing down the leg.) - Neuro Neuro: Alert and oriented X 3, Normal speech - Psych Psych: Normal mood, Normal affect Results - Vitals Vitals: Vital Signs - 24 hr 06/16/21 06/16/21 06/16/21 11:35 13:44 15:00 Temperature 36.5 C Heart Rate 85 86 84 Respiratory 20 18 24 Rate Blood Pressure 141/50 H 125/89 H 118/73 O2 Saturation 100 100 94 Oxygen O2 Source [] Room air O2 Source Room air - Labs Labs: Laboratory Tests 06/16/21 06/16/21 06/16/21 14:04 14:04 14:04 WBC 8.3 RBC 2.90 L Hgb 9.5 L Hct 28.6 L MCV 98.6 H MCH 32.8 H MCHC 33.2 RDW 15.9 H Plt Count 305 MPV 9.3 Neut # (Auto) 5.5 Lymph # (Auto) 1.3 L [place] # (Auto) 1.3 H Eos # (Auto) 0.1 Baso # (Auto) 0.1 Absolute Nucleated RBC 0.02 Nucleated RBC % 0.2 Sodium 139 Potassium 4.2 Chloride 104 Carbon Dioxide 25 Anion Gap 10.0 BUN 15 Creatinine 0.9 Estimated GFR (MDRD) 83 L Glucose 133 H Calcium 9.2 Magnesium 2.2 B-Natriuretic Peptide 308 H - Rads (name of study) Doppler ultrasound of the left leg shows no DVT but a large hematoma measuring 21 x 5 x 8 cm Radiology: EMP read contemporaneously Ct Head Radiology: EMP read contemporaneously (NAD) 2v cxr Radiology: EMP read contemporaneously (prob L hilar lung CA) PD MEDICAL DECISION MAKING - ED course ED course: 75-year-old gentleman sent in from clinic for work-up for DVT when he has a leg injury and he is anticoagulated and found to have a large hematoma there. For him more concerning actually was months worth of progressive dyspnea that has now become somewhat disabling. He also hit his head and is on anticoagulation. Head CT was unremarkable. Chest x-ray shows what is likely a left hilar lung cancer. I offered to do a CT today but he would like to get home to his dogs and chickens and work it up outpatient. I will email his primary care physician to get her in the loop. Departure - Departure Disposition: 01 Home, Self Care Clinical Impression: Contusion of leg, Dyspnea, Lung cancer, Head injury Condition: Good Record reviewed to determine appropriate education?: Yes Instructions: Cancer Lung Living Prescriptions: HYDROcod/ACETAM 5/325 [Zachary 5/325] 1 - 2 tab PO Q6H PRN #30 tablet PRN Reason: Pain Comments: I sent your prescription electronically to [facility] in [place]. As discussed, it looks like today your progressive shortness of breath is related to likely a left-sided lung cancer. This will need further work-up and I will email your primary care physician and she can take over the work-up from there. You are also anemic, but not more so than you have been in the past. Return anytime for new or worsening symptoms. Continue current medications for now. I am prescribing a short course of narcotic pain medication for you. These are potentially dangerous and addictive medications that should be used carefully. These medications may constipate you. Take an icod-uue-fnmajgu stool softener (docusate) twice daily with plenty of water while taking these medications. If you go 24 hours without a bowel movement, take anxm-lbs-vsjsexv miralax, per package instructions. Do not drink or drive while taking these medications. If you received narcotic or sedating medications while in the emergency department, do not drive for 24 hours. Store this medication in a safe, secure place and out of reach of children. It is a violation of federal law to give or sell this medication to another person or to use in a manner other than prescribed. The ED will not refill narcotic prescriptions, including prescriptions lost or stolen. To dispose of unwanted medications: 1. [facility] [address] in [place] has a medication drop box. They accept prescription medications (in pill form) Wednesday through Wednesday 9:00 a.m. to 5:00 p.m. 2. The [facility] [employer] accepts prescription medications (in pill form only) for disposal year round. Call for more information. 3. Contact the [facility] for the next [facility] sponsored prescription drug collection event. , [phone], or [phone]; Note that many narcotic pain relievers also contain Tylenol/acetaminophen. Please ensure that your total dose of acetaminophen from all sources does not exceed 3 g (3000 mg) per day.
[2021-06-16 14:08] LABS: BASOPHILS # (AUTO) 0.1 10^3/uL (0.0-0.1); BASOPHILS % (AUTO) 0.8 %; EOSINOPHILS # (AUTO) 0.1 10^3/uL (0.0-0.7); EOSINOPHILS % (AUTO) 0.6 %; HCT - HEMATOCRIT 28.6 % (42.0-52.0); HGB - HEMOGLOBIN 9.5 g/dL (14.0-18.0); LYMPHOCYTES # (AUTO) 1.3 10^3/uL (1.5-3.5); LYMPHOCYTES % (AUTO) 15.7 %; MEAN CORPUSCULAR HEMOGLOBIN 32.8 pg (27.0-31.0); MEAN CORPUSCULAR HGB CONC 33.2 g/dL (32.0-36.0); MEAN CORPUSCULAR VOLUME 98.6 fL (80.0-94.0); MEAN PLATELET VOLUME 9.3 fL (7.4-11.4); MONOCYTES # (AUTO) 1.3 10^3/uL (0.0-1.0); MONOCYTES % (AUTO) 15.4 %; NEUTROPHILS # (AUTO) 5.5 10^3/uL (1.5-6.6); NEUTROPHILS % (AUTO) 65.8 %; NRBC ABSOLUTE COUNT (AUTO) 0.02 x10^3/uL; NUCLEATED RED BLOOD CELLS AUTO 0.2 /100WBC; PLT - PLATELET COUNT 305 10^3/uL (130-450); RED CELL DISTRIBUTION WIDTH 15.9 % (12.0-15.0); WHITE BLOOD COUNT 8.3 x10^3/uL (4.8-10.8)
[2021-06-16 14:19] LABS: CALCIUM 9.2 mg/dL (8.5-10.3); CREATININE 0.9 mg/dL (0.6-1.2); MAGNESIUM 2.2 mg/dL (1.7-2.8); POTASSIUM 4.2 mmol/L (3.5-5.0)
--- NOTE | 2021-06-16 15:21 | CT Report ---
PROCEDURE: HEAD WO INDICATIONS: Head injury TECHNIQUE: Noncontrast 4.5 mm thick angled axial sections acquired from the foramen magnum to the vertex. For r adiation dose reduction, the following was used: automated exposure control, adjustment of mA and/or kV according to patient size. COMPARISON: 08/13/2018 FINDINGS: Image quality: Excellent. CSF spaces: Basal cisterns are patent. No extra-axial fluid collections. Ventricles are normal in size and shape. Brain: Local cerebral volume loss and chronic microvascular ischemic changes seen on the prior study . No midline shift. No intracranial masses or hemorrhage. Pereira-white matter interface is maintained Skull and face: Calvarium and visualized facial bones are intact, without suspicious lesions. Sinuses: Visualized sinuses and mastoids are clear. IMPRESSION: No acute intracranial finding. Reviewed by: Dimitris Watson MD on 06/16/2021 2:19 PM [facility] Approved by: Dimitris Watson MD on 06/16/2021 2:19 PM [facility] Station ID: [id number]
--- NOTE | 2021-06-16 15:22 | XRAY Report ---
PROCEDURE: Chest 2 View X-Ray INDICATIONS: Dyspnea TECHNIQUE: 2 view(s) of the chest. COMPARISON: 08/14/2018 FINDINGS: Surgical changes and devices: None. Lungs and pleura: No pleural effusions or pneumothorax. Masslike left hilar and perihilar opacity is suspicious for neoplasm. Mediastinum: Mediastinal contours are normal. Heart size is normal. Bones and chest wall: No suspicious bony abnormalities. Soft tissues appear unremarkable. IMPRESSION: Masslike left hilar and perihilar opacity, suspicious for neoplasm. CT chest with IV con trast recommended. Reviewed by: Dimitris Watson MD on 06/16/2021 2:21 PM [place] Approved by: Dimitris Watson MD on 06/16/2021 2:21 PM [facility] Station ID: [id number]
[2021-06-16 15:54] VITALS: BP 122/80
== END 2021-06-16 15:54 | disposition home or self-care (01) ==
LOC: ED 11:25
DX: S80.11XA Contusion of right lower leg, initial encounter (principal); S00.12XA Contusion of left eyelid and periocular area, initial encounter; S09.90XA Unspecified injury of head, initial encounter; W18.39XA Other fall on same level, initial encounter; Y93.01 Activity, walking, marching and hiking; C34.90 Malignant neoplasm of unspecified part of unspecified bronchus or lung; Z87.891 Personal history of nicotine dependence; Z79.01 Long term (current) use of anticoagulants; R06.02 Shortness of breath; Z20.822 Contact with and (suspected) exposure to COVID-19
CPT/HCPCS: 36415; 70450; 71046; 80048; 83735; 83880; 85025; 87275; 87276; 93005; 93971; 99283; 99284; U0004

== ENCOUNTER 2021-07-17 09:13 | Outpatient (CLI) | payer MEDICARE, OTHER ==
[2021-07-17] MEDS ORDERED: IOVERSOL 320 100 ML VIAL IVP ONE ×2 (09:25→09:45)
--- NOTE | 2021-07-17 11:33 | CT Report ---
PROCEDURE: CHEST W INDICATIONS: DYSPNEA, HILAR LUNG MASS CONTRAST: IV CONTRAST: Optiray 320 ml: 100 PO CONTRAST: *NO PO CONTRAST TECHNIQUE: After the administration of intravenous contrast, 1 mm axial images were acquired from the pulmonary apices through the posterior costophrenic angles. Axial 5 mm soft tissue kernel reconstructions were performed as well as 8 mm axial MIP and coronal and sagittal 5 mm reformations. For radiation dose reduction, the following was used: automated exposure control, adjustment of mA and/or kV according to patient size. COMPARISON: Chest radiographs 06/16/2021. Chest CT 08/17/2017. FINDINGS: Image quality: Excellent. Lungs and pleura: Soft tissue mass is seen in the superior segment of the left lower lobe distorting and possibly compressing the left major fissure. The mass measures approximately 4.3 x 3.5 cm on axi al images (image 22 of series 3) and 4.0 cm in craniocaudal extent (24/7). No definite invasion of th e adjacent rib is seen. Additional nodular soft tissue density is seen extending inferiorly from the mass within the left lower lobe, which becomes confluent with the hilum. There is narrowing of the di stal left mainstem bronchus and occlusion of the proximal left lower lobe bronchus with postobstructi ve atelectasis involving the medial aspect of the left lung base. A small left pleural effusion is pr esent. There is also mass effect on the distal trachea with narrowing of the trachea in the transvers e dimension. The right lung is clear. No right-sided pleural effusion. No pneumothorax. Lymph nodes: Bulky confluent left hilar lymphadenopathy is seen measuring approximately 6.5 x 6.3 cm (33/3), which is confluent with mediastinal lymphadenopathy. Bulky subcarinal, pretracheal, AP windo w, and right paratracheal lymph nodes are seen. The largest right paratracheal lymph node measures ap proximately 2.5 cm in short axis diameter (26/3). An upper left paratracheal lymph node measures 1.4 cm in short axis (18/3). A left supraclavicular lymph node measures 1.6 cm in short axis diameter (5/ 3). No bulky right supraclavicular lymph nodes. No axillary lymphadenopathy. Mediastinum: Heart size is mildly enlarged. No pericardial effusion. Moderate coronary artery calcif ications. Thoracic aorta and central pulmonary arteries are normal in size. Moderate aortic atherosc lerotic calcifications. Esophagus is normal in caliber. No hiatal hernia. Bones and chest wall: No suspicious bony lesions. No vertebral body compression fractures. The thy roid is normal in size. Abdomen: A large ill-defined lesion is seen in the right hepatic lobe near the dome measuring 10.4 x 8.6 x 9.2 cm (37/7 and 26/6) with central hypointensity/necrosis. A probable additional smaller live r lesions in the posterior upper right hepatic lobe and anterior left hepatic lobe. IMPRESSION: 1.Posterior left lung mass measures 4.3 x 3.5 x 4.0 cm and is suspicious for pulmonary neoplasm. Jose Juan tional soft tissue nodularity is seen extending inferiorly from the mass to the left hilum, which may represent satellite lesions. If not already obtained, bronchoscopic or percutaneous tissue sampling could be performed for further evaluation. 2.Small left pleural effusion. 3.Confluent bulky left hilar and mediastinal lymphadenopathy is consistent with karina metastatic dise ase. Bulky right mediastinal and left supraclavicular lymph nodes are also noted. 4.Ill-defined masses within the superior portion of the liver are suspicious for hepatic metastatic d isease. Reviewed by: Carlos Eduardo Rachel MD on 07/17/2021 11:32 AM PST Approved by: Carlos Eduardo Rachel MD on 07/17/2021 11:32 AM PST Station ID: [id number]
== END 2021-07-17 09:14 | disposition home or self-care (01) ==
LOC: DI 09:13
PROVIDERS: ATTEND Family Medicine
DX: R06.00 Dyspnea, unspecified (principal); R91.8 Other nonspecific abnormal finding of lung field; J90 Pleural effusion, not elsewhere classified; R59.0 Localized enlarged lymph nodes; R93.2 Abnormal findings on diagnostic imaging of liver and biliary tract
CPT/HCPCS: 71260; Q9967

== ENCOUNTER 2021-07-25 07:53 | Outpatient (CLI) | payer MEDICARE, OTHER ==
[2021-07-25] MEDS: HYDROcod/ACETAM 5/325 MG TABLET ONE ×2 (08:57→12:40)
[2021-07-25] MEDS ORDERED: LACTATED RINGERS 1,000 ML IV ONE (08:58)
[2021-07-25 09:01] LABS: INR 1.7 (0.8-1.2); PT - PROTHROMBIN TIME 18.6 secs (9.9-12.6)
[2021-07-25 09:08] LABS: PARTIAL THROMBOPLASTIN TIME 35.2 secs (24.9-33.3)
[2021-07-25] MEDS ORDERED: MIDAZOLAM 2 MG/2 ML VIAL ONE (09:41)
[2021-07-25] MEDS ORDERED: fentaNYL 100 MCG/2 ML VIAL ONE (09:41)
[2021-07-25] MEDS ORDERED: lidocaine 1% 20 ML MDV ONE (09:51)
[2021-07-25] MEDS ORDERED: LACTATED RINGERS 200 ML IV ONE ×2 (10:25)
--- NOTE | 2021-07-25 11:52 | XRAY Report ---
PROCEDURE: Chest 1 View X-Ray INDICATIONS: Post lung bx COMMENTS: POST LUNG BIOPSY PRIORS: NONE TECHNIQUE: One view of the chest was acquired. COMPARISON: CT biopsy from earlier today. FINDINGS: Surgical changes and devices: None. Lungs and pleura: No pleural effusions or pneumothorax. There are subtle diffuse groundglass opac ities in the left lung consistent with recent biopsy. Mediastinum: Mediastinal contours appear normal. Heart size is normal. Bones and chest wall: No suspicious bony lesions. Overlying soft tissues appear unremarkable. IMPRESSION: Status post lung biopsy with no evidence of pneumothorax. Reviewed by: Edwin Moran on 07/25/2021 11:50 AM [facility] Approved by: Edwin Moran on 07/25/2021 11:50 AM [facility] Station ID: [id number]
[2021-07-25] MEDS ORDERED: HYDROcod/ACETAM 5/325 MG TABLET ONE (12:48)
--- NOTE | 2021-07-25 13:56 | XRAY Report ---
PROCEDURE: Chest 1 View X-Ray INDICATIONS: POST LUNG BX COMMENTS: POST LUNG BX PRIORS: 2 TECHNIQUE: One view of the chest was acquired. COMPARISON: Today FINDINGS: Surgical changes and devices: None. Lungs and pleura: No pleural effusions or pneumothorax. No pneumothorax status post biopsy. Ther e is left basilar atelectasis. Mediastinum: Mediastinal contours appear normal. Heart size is normal. Bones and chest wall: No suspicious bony lesions. Overlying soft tissues appear unremarkable. IMPRESSION: 1. Status post left lung biopsy with no pneumothorax. 2. Left basilar atelectasis. Reviewed by: Edwin Moran on 07/25/2021 1:54 PM PST Approved by: Edwin Moran on 07/25/2021 1:54 PM PST Station ID: [id number]
[2021-07-25 14:04] VITALS: BP 122/84
[2021-07-25] MEDS ORDERED: lidocaine 1% 20 ML MDV SUBQ ONE (20:30)
--- NOTE | 2021-07-30 08:56 | CT Report ---
PROCEDURE: 1. Left lung mass CT-guided biopsy. 2. Moderate sedation. See nurse's note for time. INDICATIONS: LUNG HILAR MASS TECHNIQUE: The indications, alternatives, benefits, risks, and possible complications of the procedure were comm unicated to the patient. Informed written consent from personnel. For radiation dose reduction, the following was used: automated exposure control, adjustment of mA and/or kV according to patient the patient was obtained and placed in the chart. Continuous EKG and hemodynamic monitoring was started by trained size. The patient was brought to the CT suite and earthmoving labourer spiral CT imaging was performed with localization g rid. The appropriate site for percutaneous access to the biopsy target was marked, was prepped and d raped sterilely, and was infused with local anaesthesia. Under CT guidance, a core biopsy trocar and needle set was advanced to the biopsy target, and specimen(s) were obtained. The trocar and needle were then removed, and the patient was sent for post-procedure monitoring. COMPARISON: None. FINDINGS: Biopsy site: Left lower lobe Needle: 18 gauge biopsy needle with introducer trocar. Number of passes: One pass with the trocar and 4 passes with the biopsy needle. Medications: 1% lidocaine for local anaesthesia. IV Fentanyl and Versed for conscious sedation (see nursing record). Complications: None. IMPRESSION: Successful CT-guided biopsy of a posterior left lower lobe mass. Reviewed by: Edwin Moran on 07/30/2021 8:55 AM PST Approved by: Edwin Moran on 07/30/2021 8:55 AM PST Station ID: [id number]
== END 2021-07-25 07:54 | disposition home or self-care (01) ==
LOC: DI 07:53
PROVIDERS: ATTEND Nurse Practitioner
DX: C7A.1 Malignant poorly differentiated neuroendocrine tumors (principal)
CPT/HCPCS: 32408; 36415; 85049; 85610; 85730; 88305; 88341; 88342; 88344; 88360; A9270; J7120

== ENCOUNTER 2021-08-04 15:38 | Outpatient (CLI) | payer MEDICARE, OTHER ==
[2021-08-04 17:57] LABS: BASOPHILS % (AUTO) 0.7 %; EOSINOPHILS % (AUTO) 0.2 %; HCT - HEMATOCRIT 36.9 % (42.0-52.0); LYMPHOCYTES % (AUTO) 9.1 %; MEAN CORPUSCULAR HEMOGLOBIN 31.3 pg (27.0-31.0); MEAN CORPUSCULAR HGB CONC 32.5 g/dL (32.0-36.0); MEAN CORPUSCULAR VOLUME 96.3 fL (80.0-94.0); MEAN PLATELET VOLUME 10.7 fL (7.4-11.4); PLT - PLATELET COUNT 383 10^3/uL (130-450); RED BLOOD COUNT 3.83 10^6/uL (4.70-6.10); RED CELL DISTRIBUTION WIDTH 13.7 % (12.0-15.0); WHITE BLOOD COUNT 14.1 x10^3/uL (4.8-10.8)
[2021-08-04 18:07] LABS: ABNORMAL LYMPHS % (MANUAL) 0 %
[2021-08-04 18:29] LABS: ALBUMIN 3.2 g/dL (3.2-5.5); ALBUMIN/GLOBULIN RATIO 0.9 (1.0-2.2); BILIRUBIN,TOTAL 1.2 mg/dL (0.2-1.0); CALCIUM 9.6 mg/dL (8.5-10.3); CREATININE 0.9 mg/dL (0.6-1.2); POTASSIUM 4.7 mmol/L (3.5-5.0); TOTAL PROTEIN 6.9 g/dL (6.7-8.2)
[2021-08-04 19:32] LABS: BAND NEUTROPHILS % (MANUAL) 2 %; LYMPHOCYTES # (MANUAL) 0.8 10^3/uL (1.5-3.5); LYMPHOCYTES % (MANUAL) 6 %; MONOCYTES # (MANUAL) 1.4 10^3/uL (0.0-1.0); NEUTROPHILS # (MANUAL) 11.8 10^3/uL (1.5-6.6); PLATELET ESTIMATE, MANUAL NORMAL (130-450,000) (NORMAL); PLATELET MORPHOLOGY NORMAL APPEARANCE (NORMAL); RBC MORPHOLOGY (MULTIPLE) NORMAL APPEARANCE (NORMAL)
[2021-08-04 19:33] LABS: DIFFERENTIAL COMMENT MANUAL DIFFERENTIAL
== END 2021-08-04 15:39 | disposition home or self-care (01) ==
LOC: LAB.N 15:38
PROVIDERS: ATTEND Nurse Practitioner Family
DX: L03.116 Cellulitis of left lower limb (principal); M79.81 Nontraumatic hematoma of soft tissue; D64.9 Anemia, unspecified
CPT/HCPCS: 36415; 80053; 85025